=== PATIENT | female | born 1955 | race Caucasian/White ===

== ENCOUNTER → 2017-05-11 14:12 | Outpatient (POV) | payer OTHER, SELFPAY | PROVIDERS: PCP Internal Medicine | DX: Z00.00 Encounter for general adult medical examination without abnormal findings (principal) ==

== ENCOUNTER → 2017-05-24 11:50 | Outpatient (POV) | payer OTHER, SELFPAY | PROVIDERS: PCP Internal Medicine; Visit Provider Internal Medicine | DX: Z00.00 Encounter for general adult medical examination without abnormal findings (principal) ==

== ENCOUNTER → 2017-07-28 15:45 | Outpatient (POV) | payer OTHER, SELFPAY | PROVIDERS: PCP Internal Medicine; Visit Provider Dermatology | DX: Z00.00 Encounter for general adult medical examination without abnormal findings (principal) ==

== ENCOUNTER → 2017-11-22 14:38 | Outpatient (POV) | payer OTHER, SELFPAY | PROVIDERS: PCP Internal Medicine; Visit Provider Internal Medicine | DX: Z00.00 Encounter for general adult medical examination without abnormal findings (principal) ==

== ENCOUNTER → 2017-12-16 14:58 | Outpatient (CLI) | payer OTHER, SELFPAY ==
--- NOTE | 2017-12-16 | XR_ITS ---
XR chest 2V HISTORY: Cough ORDERING PHYSICIAN: Bird Stanton PATIENT AGE: 62 years COMPARISON: PA and lateral chest 11/25/2016 FINDINGS: The cardiomediastinal silhouette and pulmonary vascularity are within normal limits. The lungs are clear without infiltrates, suspicious nodules, or pleural effusions. There is minimal atelectasis versus scarring in the right perihilar region and right middle lobe. No acute bony abnormalities. IMPRESSION: Negative chest, no acute finding
== END ==
PROVIDERS: PCP Internal Medicine; Visit Provider Internal Medicine
DX: R50.9 Fever, unspecified (principal); R05 Cough; R06.02 Shortness of breath; R09.3 Abnormal sputum
CPT/HCPCS: 71046

== ENCOUNTER → 2017-12-19 08:43 | Outpatient (CLI) | payer OTHER, SELFPAY ==
--- NOTE | 2017-12-19 08:48 | MM_ITS ---
MM Dig screening mamm BI w/CAD ORDERING PHYSICIAN : Bird Stanton PATIENT AGE: 62 years GENDER: Female COMPARISON: November 2014, 2016, 2013, December 2011 INDICATION: ITS.REASON: SCREENING no hormones. No new complaints. Previous 6 benign excisional biopsy right and left breast. Noncontributory family history TECHNIQUE: Standard CC and MLO images were obtained. R2 CAD reviewed. FINDINGS: Moderate breast density. Stable mild to moderate Asymmetry . Prior films are very helpful and supportive stable asymmetry. Stable breast pattern is bilaterally since studies dating back to at least 2011. No new dominant mass nor suspicious cavitations either breast IMPRESSION: Stable bilateral mammogram. No significant new findings. BI-RADS Category: 2 Benign Finding(s) RECOMMENDED FOLLOW-UP: 1YR 1 YEAR FOLLOW-UP (A letter has been sent to the patient regarding results of the study.)
== END ==
PROVIDERS: PCP Internal Medicine; Visit Provider Internal Medicine
DX: Z12.31 Encounter for screening mammogram for malignant neoplasm of breast (principal)
CPT/HCPCS: 77067

== ENCOUNTER → 2018-08-01 15:14 | Outpatient (POV) | payer OTHER, SELFPAY | PROVIDERS: Visit Provider Dermatology | DX: Z00.00 Encounter for general adult medical examination without abnormal findings (principal) ==

== ENCOUNTER → 2018-08-09 15:08 | Outpatient (POV) | payer OTHER, SELFPAY | DX: Z00.00 Encounter for general adult medical examination without abnormal findings (principal) ==

== ENCOUNTER → 2019-01-02 12:50 | Outpatient (CLI) | payer OTHER, SELFPAY ==
--- NOTE | 2019-01-02 12:55 | MM_ITS ---
PROCEDURE: MM DIG SCREENING MAMM BI W/CAD CLINICAL INDICATION: SCREENING There is no personal or family history of breast cancer. There has been previous biopsies on each breast for benign disease. COMPARISON: [facility]B DIG MAMM-SCREEN KAMRYN from 12/19/2014 DMSB DIG MAMM-SCREEN KAMRYN W/CAD from 11/25/2016 [facility] MM Dig screening mamm BI w/CAD from 12/19/2017 TECHNIQUE: Standard CC and MLO images were obtained. R2 CAD reviewed. FINDINGS: Moderate diffuse fibroglandular densities are seen throughout both breasts. There is moderate arterial calcification in each breast. There is no new or suspicious lesion in either breast and no suspicious microcalcifications. There are fatty replaced nodes in both axilla. IMPRESSION: Fibrofatty parenchyma with no suspicious lesions seen BI-RAD Category: 2 Benign Finding(s) FOLLOW-UP: 1YR 1 Year Follow-up (A letter has been sent to the patient regarding results of the study.) Dictated by: Dr. Nicholas Valerio MD 01/04/2019 14:[address] Nicholas Valerio MD in [place] 01/04/2019 14:45
== END ==
PROVIDERS: PCP Internal Medicine; Visit Provider Internal Medicine
DX: Z12.31 Encounter for screening mammogram for malignant neoplasm of breast (principal)
CPT/HCPCS: 77067

== ENCOUNTER → 2019-07-27 15:50 | Outpatient (CLI) | payer OTHER, SELFPAY ==
[2019-07-27 17:11] LABS: Coronavirus 19 IgG Antibody Negative (Negative); Coronavirus 19 IgM Antibody Negative (Negative)
== END ==
PROVIDERS: Visit Provider Internal Medicine
DX: Z03.818 Encounter for observation for suspected exposure to other biological agents ruled out (principal)
CPT/HCPCS: 36415; 86328

== ENCOUNTER → 2019-08-01 13:49 | Outpatient (POV) | payer OTHER, SELFPAY | PROVIDERS: PCP Internal Medicine | DX: Z00.00 Encounter for general adult medical examination without abnormal findings (principal) ==

== ENCOUNTER → 2019-08-07 14:44 | Outpatient (POV) | payer OTHER, SELFPAY | PROVIDERS: PCP Internal Medicine; Visit Provider Physician Assistant | DX: Z00.00 Encounter for general adult medical examination without abnormal findings (principal) ==

== ENCOUNTER → 2019-11-05 14:37 | Outpatient (CLI) | payer OTHER, SELFPAY ==
[2019-11-05 16:08] LABS: Potassium 5.5 mmoL/L (3.5-5.1)
== END ==
PROVIDERS: Visit Provider Internal Medicine
DX: E83.52 Hypercalcemia (principal)
CPT/HCPCS: 36415; 84132

== ENCOUNTER → 2020-01-08 10:44 | Outpatient (CLI) | payer OTHER, SELFPAY ==
--- NOTE | 2020-01-08 10:48 | MM_ITS ---
PROCEDURE: MM DIG SCREENING MAMM BI W/CAD Digital Breast Tomosynthesis Included CLINICAL INDICATION: SCREENING There is no personal or family history of breast cancer. There have been previous biopsies on each breast for benign disease. COMPARISON: MG DMSB DIG MAMM-SCREEN KAMRYN from 12/19/2014 MG DMSB DIG MAMM-SCREEN KAMRYN W/CAD from 11/25/2016 MG [facility] MM Dig screening mamm BI w/CAD from 12/19/2017 MG MM DIG SCREENING MAMM BI W/CAD from 01/02/2019 TECHNIQUE: Standard CC and MLO images and 3D Tomosynthesis was obtained. R2 CAD reviewed. FINDINGS: Moderate scattered somewhat heterogenic fibroglandular densities are seen throughout both breasts. There is mild arterial calcification in each breast. There are fatty replaced nodes in both axilla which are stable. There is no suspicious lesion and no suspicious microcalcifications. IMPRESSION: Moderate breast density with no suspicious lesions seen BI-RAD Category: 2 Benign Finding(s) FOLLOW-UP: 1YR 1 Year Follow-up (A letter has been sent to the patient regarding results of the study.) Dictated by: Dr. Nicholas Valerio MD 01/11/2020 11:34 Dr. Nicholas Valerio MD in [place] 01/11/2020 11:34
== END ==
PROVIDERS: PCP Internal Medicine; Visit Provider Internal Medicine
DX: Z12.31 Encounter for screening mammogram for malignant neoplasm of breast (principal)
CPT/HCPCS: 77063; 77067

== ENCOUNTER → 2020-10-15 15:08 | Outpatient (POV) | payer OTHER, SELFPAY | DX: Z00.00 Encounter for general adult medical examination without abnormal findings (principal) ==

== ENCOUNTER → 2021-01-12 16:40 | Outpatient (CLI) | payer OTHER, SELFPAY ==
[2021-01-12 16:51] LABS: Coronavirus 19, PCR Not Detected (NotDetected); Influenza A, PCR Not Detected (NotDetected); Influenza B, PCR Not Detected (NotDetected)
== END ==
PROVIDERS: PCP Internal Medicine; Visit Provider Nurse Practitioner
DX: Z20.822 Contact with and (suspected) exposure to COVID-19 (principal)
CPT/HCPCS: C9803; U0003; U0005

== ENCOUNTER → 2021-02-19 15:49 | Outpatient (CLI) | payer OTHER, SELFPAY ==
--- NOTE | 2021-02-19 15:51 | MM_ITS ---
PROCEDURE INFORMATION: Exam: MG Bilateral Screening 3D Mammography Exam date and time: 02/19/2021 3:51 PM Age: 65 years old Clinical indication: Encounter for screening mammogram for malignant neoplasm of breast TECHNIQUE: Imaging protocol: Bilateral screening tomosynthesis and 2D mammography including computer-aided detection (CAD) when performed. COMPARISON: 1. MG MM DIG SCREENING MAMM BI W/CAD 01/08/2020 10:59 AM 2. MG MM DIG SCREENING MAMM BI W/CAD 01/02/2019 1:13 PM FINDINGS: MAMMOGRAPHY: Breast composition: The breast tissue is composed of scattered areas of fibroglandular density. Mass: Questionable 0.9 cm mass in the middle third of the left upper outer quadrant Architectural distortion: None. Calcifications: No suspicious calcifications. Asymmetric density: None. Skin thickening: None. Axillary adenopathy: None. IMPRESSION: Patient to be recalled for spot compression views of the left breast in the CC and MLO projections, a full 90 degree lateral view, and left breast ultrasound for further evaluation of a left breast mass. ASSESSMENT: BI-RADS Category 0: Incomplete- Need Additional Imaging Evaluation and/or Prior Mammograms for Comparison
== END ==
PROVIDERS: PCP Internal Medicine; Visit Provider Internal Medicine
DX: Z12.31 Encounter for screening mammogram for malignant neoplasm of breast (principal)
CPT/HCPCS: 77063; 77067

== ENCOUNTER → 2021-03-10 14:39 | Outpatient (CLI) | payer OTHER, SELFPAY ==
--- NOTE | 2021-03-10 14:47 | MM_ITS ---
PROCEDURE INFORMATION: Exam: US Left Breast, Complete MG Left Diagnostic Breast Tomosynthesis Exam date and time: 03/10/2021 2:47 PM Age: 65 years old Clinical indication: Patient recalled for further evaluation of a questionable left breast mass TECHNIQUE: Imaging protocol: Complete ultrasound of all four quadrants of the Left breast and the retroareolar regions, including ultrasound of the axilla when performed. Left Diagnostic tomosynthesis and 2D mammography including computer-aided detection (CAD) when performed. Unilateral or bilateral exam. COMPARISON: 1. MG MM DIG SCREENING MAMM BI W/CAD 02/19/2021 3:48 PM 2. MG MM DIG SCREENING MAMM BI W/CAD 01/08/2020 10:59 AM FINDINGS: MAMMOGRAPHY: Digital diagnostic spot compression views of the left breast and 90 degree lateral view of the left breast demonstrate normal overlapping fibroglandular structures without persistent mass or asymmetry identified. ULTRASOUND: Sonographic images of the left breast including the retroareolar region, all 4 quadrants and the axilla do not demonstrate any solid or cystic masses. No architectural distortion or acoustical shadowing. No skin thickening or axillary adenopathy. IMPRESSION: No mammographic or sonographic evidence of malignancy. Annual bilateral mammographic screening is recommended unless otherwise clinically indicated. ASSESSMENT: Assessment: BI-RADS Category 1: Negative
== END ==
PROVIDERS: PCP Internal Medicine; Visit Provider Internal Medicine
DX: N63.21 Unspecified lump in the left breast, upper outer quadrant (principal)
CPT/HCPCS: 76641; 77061; 77065; G0279

== ENCOUNTER → 2021-03-23 16:21 | Outpatient (CLI) | payer OTHER, SELFPAY | PROVIDERS: Visit Provider Nurse Practitioner | DX: Z20.822 Contact with and (suspected) exposure to COVID-19 (principal) | CPT/HCPCS: C9803; U0003; U0005 ==

== ENCOUNTER 2021-05-24 18:29 | Emergency (ER) | payer OTHER, SELFPAY ==
[2021-05-24 18:30] VITALS: BP 187/91; PULSE 104; RESP 26; TEMP 36.7; O2SAT 93; BMI 29.0
--- NOTE | 2021-05-24 18:49 | HMH.EDUTC ---
[facility] [place] Disposition Clinical Impression: Acute asthma exacerbation Qualifiers: Asthma severity: moderate Asthma persistence: unspecified Qualified Code(s): J45.901 - Unspecified asthma with (acute) exacerbation Disposition: Home, Self-Care Condition on Discharge: Good Instructions: DI for Asthma -- Adult Additional Instructions: Start antibiotic today. Be sure to complete entire prescription even if feeling better Tylenol and ibuprofen as needed for pain or fever Humidifier/vaporizer/hot steamy shower Follow-up with primary care tomorrow. Follow-up immediately in the ER of the [facility] for new or worsening symptoms or no noticeable improvement over the next 48-72 hours. Stop smoking Inhaler every 4-6 hours as needed. Should help open airways improved cough, wheezing, shortness of breath Start steroids tomorrow. Helps with inflammation therefore coughing and wheezing. Follow directions on package. Prescriptions: predniSONE [Prednisone 20mg Tab] 20 mg PO BID #10 tab Prescription Printed Azithromycin [Zithromax 250mg tab] 250 mg PO DIRECTED #6 tab Prescription Printed Referrals: Bird Stanton [Primary Care Provider] - Time of Disposition: 19:23 Medical Decision Making - Martin Inquiry Pt receiving controlled substance: No Vital Signs: 05/24/21 18:30 Temperature 98.1 F Temperature Source Oral Pulse Rate [Right Brachial] 104 H Respiratory Rate 26 H Blood Pressure [Right Arm] 187/91 H Blood Pressure Mean [Right Arm] 123 Blood Pressure Source [Right Arm] Automatic Cuff Blood Pressure Position [Right Arm] Sitting 02 Sat by Pulse Oximetry 93 L Oxygen Delivery Method Room Air [facility] [place] HPI - General Chief complaint: Urgent Treatment Center Stated complaint: diff breathing Time Seen by Provider: 05/24/21 19:18 Mode of Arrival: Ambulatory Source of Information: Patient Limitations: No Limitations Description of Symptoms (Recalled from Triage Doc. by RN): PATIENT C/O SOA AND COUGH. SHE REPORTS SYMPTOMS STARTED 15 DAYS AGO, BUT HAVE GOTTEN WORSE OVER THE PAST FEW DAYS HEENT Symptoms (Recalled from RN notes): No Resp Symptoms (Recalled from RN notes): Yes Skin Symptoms (Recalled from RN notes): No MS Symptoms (Recalled from RN notes): No Functional Status (Recalled from RN notes): WNL - History of Present Illness Provider Complaint: 65 yr old female presents for soa and wheezing. pt states she has had symptoms for 14 days but they have worsened over the last couple. pt states hx of asthma and she tried to mange it at home but nothing was helping - Related Data Home Medications Medication Instructions Recorded Confirmed nuyspdeicu-cdzlbbplyyiej-znuiehrr 1 cap PO Q8H PRN 02/12/20 02/28/20 50 mg-300 mg-40 mg capsule cetirizine 10 mg capsule mg PO 02/12/20 02/28/20 diltiazem HCl 180 mg 180 mg PO DAILY 02/12/20 02/28/20 capsule,extended release 24 hr hydrochlorothiazide 12.5 mg tablet 12.5 mg PO DAILY 02/12/20 02/28/20 montelukast 10 mg tablet 10 mg PO DAILY 02/12/20 02/28/20 olmesartan 20 mg tablet 20 mg PO DAILY 02/12/20 02/28/20 omega-3-dha 120 mg-epa 180 mg-fish cap PO 02/12/20 02/28/20 oil-vitamin D3 1,000 unit capsule vitamin D3 20 mcg-vit K2 180 tab PO 02/12/20 02/28/20 mcg-calcium fructoborate 216 mg tablet Previous Rx's Medication Instructions Recorded Azithromycin [Zithromax 250mg 250 mg PO DIRECTED #6 tab 05/24/21 tab] predniSONE [Prednisone 20mg 20 mg PO BID #10 tab 05/24/21 Tab] Allergies Allergy/AdvReac Type Severity Reaction Status Date / Time codeine [CODEINE] Allergy Unknown NAUSEA/VOMI Verified 02/28/20 16:07 TTING diphenhydramine Allergy Unknown I-HIVES Verified 02/28/20 16:07 [From BENADRYL] morphine [MORPHINE] Allergy Unknown NA-NAUSEA/V Verified 02/28/20 16:07 OMITING nebivolol [From BYSTOLIC] Allergy Unknown ASTHMA Verified 02/28/20 16:07 Penicillins [PENICILLINS] Allergy Unknown REACTION Verified 02/28/20 16:07 A
[2021-05-24 19:18] VITALS: BP 145/62; PULSE 89; RESP 26; TEMP 36.7; O2SAT 94
--- NOTE | 2021-05-25 09:25 | PC.NURSE ---
Spoke with MEHDI TORRES in clinic and called in rx from 05/24/2021. They stated they never received the RX.
== END 2021-05-24 19:30 | disposition home or self-care (01) ==
PROVIDERS: Emergency Provider Nurse Practitioner Family; PCP Internal Medicine
DX: J45.901 Unspecified asthma with (acute) exacerbation (principal); Z79.52 Long term (current) use of systemic steroids; Z88.0 Allergy status to penicillin; Z88.2 Allergy status to sulfonamides; Z88.5 Allergy status to narcotic agent; Z88.8 Allergy status to other drugs, medicaments and biological substances
CPT/HCPCS: 96372; 99213; G0463

== ENCOUNTER → 2021-06-02 08:15 | Outpatient (CLI) | payer OTHER, SELFPAY ==
--- NOTE | 2021-06-02 08:38 | XR_ITS ---
FINAL REPORT TECHNIQUE: Chest PA & Lateral CLINICAL HISTORY: SEVERE ASTHMA, COPD, OSTEOPENIA FINDINGS: 2 views of the chest were performed. The heart is mildly enlarged. There is a small to moderate hiatal hernia. The lungs are hyperinflated. There are linear opacities in the right middle lobe consistent with atelectasis or scarring. There are no pleural effusions. There is no pneumothorax. The bony thorax appears intact. IMPRESSION: Right middle lobe atelectasis or scarring. Reviewed, Interpreted and Dictated by Jared Chaidez MD Transcribed by Nakul Fuentes Authenticated by Jared Chaidez MD on 06/02/2021 11:38:47 AM [facility]
[2021-06-02 09:10] LABS: Basophils # 0.4 K/mm3 (0-0.2); Basophils % 2.8 % (0.1-2.0); Eosinophils # 0.3 K/mm3 (0.0-0.4); Eosinophils % 1.6 % (0.1-12.0); Hematocrit 39.8 % (37.0-47.0); Hemoglobin 13.1 g/dL (12.2-16.2); Lymphocytes # 5.2 K/mm3 (0.7-4.5); Lymphocytes % 32.8 % (10-50); Mean Corpuscular HGB Conc 32.8 g/dL (31.8-35.4); Mean Corpuscular Hemoglobin 28.8 pg (27.0-31.2); Mean Corpuscular Volume 87.9 fl (81-99); Mean Platelet Volume 7.7 fl (7.4-10.4); Monocytes # 0.8 K/mm3 (0.1-1.0); Monocytes % 5.1 % (1.7-9.3); Neutrophils # 9.1 K/mm3 (1.8-7.8); Neutrophils % 57.8 % (37.0-80.0); Platelet Count 419 K/mm3 (142-424); Red Blood Count 4.53 M/mm3 (4.20-5.40); Red Cell Distribution Width 14.4 % (11.5-17.5); White Blood Count 15.7 K/mm3 (4.8-10.8)
[2021-06-02 09:18] LABS: Chloride 98 mmol/L (98-107); MANUAL DIFFERENTIAL MANUAL DIFFERENTIAL (MANUAL DIFF); Potassium 3.4 mmoL/L (3.5-5.1); Sodium 133 mmol/L (136-145)
[2021-06-02 09:20] LABS: Alanine Aminotransferase 19 U/L (12-78); Anion Gap 9.4 mEq/L (5-15); Aspartate Amino Transferase 21 U/L (14-36); Blood Urea Nitrogen 19 mg/dl (7-17); Carbon Dioxide 29 mmol/L (22.0-30.0); Estimated Glomerular Filt Rate 50 ml/min (>60); GFR (African American) 60 ML/MIN (>60)
[2021-06-02 09:21] LABS: Albumin Level 3.9 g/dl (3.5-5.0); Albumin/Globulin Ratio 1.9 (1.1-1.8); Alkaline Phosphatase 66 U/L (38-126); Bilirubin,Total 0.7 mg/dl (0.2-1.3); Calcium 9.2 mg/dl (8.4-10.2); Chol/HDL Ratio 3.9 (1-3.5); Cholesterol 200 mg/dl (140-200); Globulin 2.1 g/dL (1.3-3.2); Glucose 75 mg/dl (74-100); HDL Cholesterol 51 mg/dl (40-60); Triglycerides 134 mg/dl (30-150); VLDL Cholesterol 27 mg/dL (0-40)
[2021-06-02 09:32] LABS: Direct LDL Cholesterol 121.61 mg/dL (100-129)
[2021-06-02 14:57] LABS: Eosinophils % 1 % (0-3); Lymphocytes % 42 % (10-50); Monocytes % 5 % (2-9); Neutrophils % 52 % (42-76); Platelet Estimate Normal; RBC Morphology Normal; Total Cells Counted 100
== END ==
PROVIDERS: PCP Internal Medicine; Visit Provider Internal Medicine
DX: J45.50 Severe persistent asthma, uncomplicated (principal); J44.9 Chronic obstructive pulmonary disease, unspecified; I10 Essential (primary) hypertension; E78.5 Hyperlipidemia, unspecified; M85.89 Other specified disorders of bone density and structure, multiple sites
CPT/HCPCS: 36415; 71046; 80053; 80061; 82306; 85007; 85025

== ENCOUNTER → 2021-08-04 16:13 | Outpatient (POV) | payer OTHER, SELFPAY | PROVIDERS: Visit Provider Dermatology | DX: Z00.00 Encounter for general adult medical examination without abnormal findings (principal) ==

== ENCOUNTER → 2021-09-04 09:06 | Outpatient (CLI) | payer OTHER, SELFPAY ==
--- NOTE | 2021-09-04 09:09 | XR_ITS ---
FINAL REPORT TECHNIQUE: Bone densitometry calculations of the lumbar spine and both hips were obtained. CLINICAL HISTORY: . post menopausal screening FINDINGS: DEXA BONE DENSITY AXIAL SKELETON Using L1-4, the bone mineral density of the spine is 0.963 g/cm2, corresponding to T-score of -0.8. Note that these values may be falsely elevated secondary to hypertrophic change. Using the left hip, the bone mineral density of the femoral neck is 0.593 g/cm2, corresponding to a T-score of -2.3. Using the right hip, the bone mineral density of the femoral neck is 0.621 g/cm2, corresponding to a T-score of -2.1. NOTE: T-score: Standard deviation compared with peak bone mass of young adult mean. *Following the recommendations of the International Society of Bone densitometry, classification of hip BMD is based on the lower of two T-scores; total hip or femoral neck. IMPRESSION: Diminished bone mineral density of the hips bilaterally consistent with osteopenia. FRAX 10 year fracture risk is 19 % for major osteoporotic fracture based on calculations for the left hip. Reviewed, Interpreted and Dictated by Jared Chaidez MD Transcribed by Lisa Mahajan Authenticated and [facility] [place]
== END ==
PROVIDERS: PCP Internal Medicine; Visit Provider Nurse Practitioner Obstetrics & Gynecology
DX: Z78.0 Asymptomatic menopausal state (principal); M85.89 Other specified disorders of bone density and structure, multiple sites
CPT/HCPCS: 77080

== ENCOUNTER → 2021-09-04 09:56 | Outpatient (CLI) | payer OTHER, SELFPAY ==
[2021-09-04 11:03] LABS: Anion Gap 11.9 mEq/L (5-15); Blood Urea Nitrogen 17 mg/dl (7-17); Calcium 10.4 mg/dl (8.4-10.2); Carbon Dioxide 27 mmol/L (22.0-30.0); Chloride 100 mmol/L (98-107); Estimated Glomerular Filt Rate 62 ml/min (>60); GFR (African American) 75 ML/MIN (>60); Glucose 102 mg/dl (74-100); Potassium 3.9 mmoL/L (3.5-5.1); Sodium 135 mmol/L (136-145)
[2021-09-08 15:09] LABS: D001-IgE D pteronyssinus <0.10 kU/L (Class 0); D002-IgE D farinae <0.10 kU/L (Class 0); E001-IgE Cat Dander <0.10 kU/L (Class 0); E005-IgE Dog Dander <0.10 kU/L (Class 0); E072-IgE Mouse Urine <0.10 kU/L (Class 0); G002-IgE Bermuda Grass <0.10 kU/L (Class 0); G006-IgE Timothy Grass <0.10 kU/L (Class 0); I006-IgE Cockroach, German <0.10 kU/L (Class 0); Immunoglobulin E, Total 10 IU/mL (6-495); M001-IgE Penicillium chrysogen <0.10 kU/L (Class 0); M002-IgE Cladosporium herbarum <0.10 kU/L (Class 0); M003-IgE Aspergillus fumigatus <0.10 kU/L (Class 0); M006-IgE Alternaria alternata <0.10 kU/L (Class 0); T001-IgE Maple/Box Elder <0.10 kU/L (Class 0); T003-IgE Common Silver Birch <0.10 kU/L (Class 0); T006-IgE Cedar, Mountain <0.10 kU/L (Class 0); T007-IgE Oak, White <0.10 kU/L (Class 0); T008-IgE Elm, American <0.10 kU/L (Class 0); T010-IgE Walnut <0.10 kU/L (Class 0); T011-IgE Maple Leaf Sycamore <0.10 kU/L (Class 0); T014-IgE Cottonwood <0.10 kU/L (Class 0); T015-IgE Ash, White <0.10 kU/L (Class 0); T022-IgE Pecan, Hickory <0.10 kU/L (Class 0); T070-IgE White Mulberry <0.10 kU/L (Class 0); W001-IgE Ragweed, Short <0.10 kU/L (Class 0); W011-IgE Thistle, Russian <0.10 kU/L (Class 0); W014-IgE Pigweed, Common <0.10 kU/L (Class 0); W018-IgE Sheep Sorrel <0.10 kU/L (Class 0)
== END ==
PROVIDERS: PCP Internal Medicine; Visit Provider Internal Medicine Pulmonary Disease
DX: R06.09 Other forms of dyspnea (principal); J45.40 Moderate persistent asthma, uncomplicated; I10 Essential (primary) hypertension; E87.6 Hypokalemia
CPT/HCPCS: 36415; 80048; 82785; 86003

== ENCOUNTER → 2021-09-28 09:45 | Outpatient (CLI) | payer OTHER, SELFPAY ==
[2021-09-28 11:10] VITALS: PULSE 89; PULSE 96
== END ==
PROVIDERS: PCP Internal Medicine; Visit Provider Internal Medicine Pulmonary Disease
DX: R06.09 Other forms of dyspnea (principal); J45.40 Moderate persistent asthma, uncomplicated
CPT/HCPCS: 94060; 94640; 94727; 94729

== ENCOUNTER → 2022-06-17 10:52 | Outpatient (CLI) | payer OTHER, SELFPAY ==
--- NOTE | 2022-06-17 11:03 | MM_ITS ---
PROCEDURE INFORMATION: Exam: MG Bilateral Screening 3D Mammography Exam date and time: 06/17/2022 10:51 AM Age: 66 years old Clinical indication: Screening mammogram TECHNIQUE: Imaging protocol: Bilateral Screening tomosynthesis and 2D mammography including computer-aided detection (CAD) when performed. COMPARISON: 1. MG MM DIG MAMM DX UNILAT LT CAD 03/10/2021 2:46 PM 2. MG MM DIG SCREENING MAMM BI W/CAD 02/19/2021 3:48 PM 3. MG MM DIG SCREENING MAMM BI W/CAD 01/08/2020 10:59 AM 4. MG MM DIG SCREENING MAMM BI W/CAD 01/02/2019 1:13 PM FINDINGS: MAMMOGRAPHY: Breast composition: There are scattered areas of fibroglandular density. Mass: None. Architectural distortion: No new or suspicious architectural distortion. Calcifications: Stable benign-appearing calcifications are present. No new or suspicious cluster of microcalcifications have developed. Asymmetric density: No new or suspicious asymmetric density is present Skin thickening: None. Axillary adenopathy: None. IMPRESSION: No mammographic evidence of malignancy. Recommend annual screening mammography unless otherwise clinically indicated. ASSESSMENT: BI-RADS category 2: Benign
== END ==
PROVIDERS: PCP Internal Medicine; Visit Provider Internal Medicine
DX: Z12.31 Encounter for screening mammogram for malignant neoplasm of breast (principal)
CPT/HCPCS: 77063; 77067

== ENCOUNTER 2022-09-22 17:28 | Emergency (ER) | payer OTHER, SELFPAY ==
[2022-09-22 17:43] VITALS: BP 191/90; PULSE 105; RESP 22; TEMP 36.7; O2SAT 95; BMI 27.9
--- NOTE | 2022-09-22 17:47 | XR_ITS ---
PROCEDURE INFORMATION: Exam: XR Chest Exam date and time: 09/22/2022 5:43 PM Age: 67 years old Clinical indication: Cough; Additional info: Cough, congestion TECHNIQUE: Imaging protocol: Radiologic exam of the chest. Views: 2 views. COMPARISON: CR XR CHEST 2V 06/02/2021 8:43 AM FINDINGS: Lungs: Stable atelectasis and/or scarring within the right middle lobe and right upper lobe calcified granuloma. No new focal airspace consolidation. Pleural spaces: Unremarkable. No pleural effusion. No pneumothorax. Heart/Mediastinum: Unchanged cardiomediastinal contours. Bones/joints: Unchanged compression deformity of the L3 vertebral body. IMPRESSION: No acute pulmonary findings.
--- NOTE | 2022-09-22 17:52 | EXP.UTC ---
Discharge Plan Disposition Patient Disposition: Home, Self-Care Condition: Good Prescriptions Prescriptions: New promethazine-DM 6.25-15 mg/5 mL Syrup 5 ml PO Q6H PRN (Reason: Cough) Qty: 240 0RF levofloxacin [levofloxacin] 500 mg tablet 500 mg PO DAILY Qty: 7 0RF methylprednisolone 4 mg Tablets,Dose Pack 4 mg PO DIRECTED Qty: 21 0RF No Action azelastine 137 mcg (0.1 %) aerosol,spray 2 spray INTRANASAL HS 90 Days Qty: 30 3RF Rx Instructions: administer into each nostril fluticasone propion-salmeterol [Advair Diskus] 250-50 mcg/dose blister with device 1 inh INHALATION BID 90 Days Qty: 180 3RF albuterol sulfate 90 mcg/actuation HFA aerosol inhaler 2 inh IH Q6H PRN (Reason: shortness of breath or wheezing) 90 Days Qty: 8.5 3RF montelukast 10 mg tablet 10 mg PO DAILY 90 Days Qty: 90 3RF doxycycline hyclate 100 mg capsule 100 mg PO BID 7 Days Qty: 14 0RF Zyrtec 10 mg capsule PO diltiazem HCl 180 mg capsule,extended release 24hr 180 mg PO DAILY hydrochlorothiazide 12.5 mg tablet 12.5 mg PO DAILY olmesartan 20 mg tablet 20 mg PO DAILY montelukast 10 mg tablet 10 mg PO DAILY vit D3-vit K2-ca fructoborate 20 mcg-180 mcg- 216 mg tablet PO ix-4-fpw-epa-fish oil-vit D3 120 mg-180 mg -1,000 unit capsule PO srpibksssy-cvzwtdudglxtf-ilhm [Fioricet] 50-300-40 mg capsule 1 cap PO Q8H PRN omeprazole 40 mg capsule,delayed release(DR/EC) 40 mg PO DAILY Prolia 60 mg/mL syringe 60 mg SQ [id number] Qty: 1 2RF fluticasone propionate [Flonase Allergy Relief] 50 mcg/actuation spray,suspension 2 spray intranasal DAILY 90 Days Qty: 16 3RF Rx Instructions: administer into each nostril Referrals Follow up/Referrals: Bird Stanton MD [Primary Care Provider] - See instructions Activity Restrictions/Add. Instructions Additional Instructions/Restrictions: Drink plenty of fluids. Take tylenol for pain or fever. Take the medications as directed. Follow up with your regular doctor. GO TO THE ER FOR ANY WORSENING SYMPTOMS Don't start the oral steroids until tomorrow, since you had the shot here today. The cough medication (promethazine dm) will make you drowsy, so don't drive or operate heavy machinery after taking it. Clinical Impressions Clinical Impression: Pneumonia Instructions Patient Instructions: Pneumonia-Adult, Promethazine, Ceftriaxone Injection, Levofloxacin Discharge ED Provider: Vish Babb [facility] HPI General Stated complaint: SOA Mode of Arrival: Ambulatory Source of Information: Patient Limitations: No Limitations Time Seen by Provider: 09/22/22 17:52 Description of Symptoms (Recalled from Triage Doc. by RN): pt. states she has has shortness of air, cough, and congestion for about 2 weeks. She does state she has a history of asthma and has been using her albuterol inhaler as needed. HEENT Symptoms (Recalled from RN notes): No Resp Symptoms (Recalled from RN notes): Yes Skin Symptoms (Recalled from RN notes): No MS Symptoms (Recalled from RN notes): No Functional Status (Recalled from RN notes): no History of Present Illness Provider Complaint: She states that for the past 2 weeks she has had sinus congestion and chest congestion. She has a history of asthma. Related Data Home Medications Medication Instructions Recorded Confirmed hvqprtkyox-fpxenuxnqaxgv-cwpayvka 1 cap PO Q8H PRN 02/12/20 04/19/22 50 mg-300 mg-40 mg capsule (Fioricet) cetirizine 10 mg capsule (Zyrtec) mg PO 02/12/20 04/19/22 diltiazem HCl 180 mg 180 mg PO DAILY 02/12/20 04/19/22 capsule,extended release 24 hr hydrochlorothiazide 12.5 mg tablet 12.5 mg PO DAILY 02/12/20 04/19/22 montelukast 10 mg tablet 10 mg PO DAILY 02/12/20 04/19/22 olmesartan 20 mg tablet 20 mg PO DAILY 02/12/20 04/19/22 omega-3-dha 120 mg-epa 180 mg-fish cap PO 02/12/20 04/19/22 oil-vitamin D3 1,000 un
[2022-09-22 18:24] VITALS: BP 191/90; PULSE 105; RESP 20; TEMP 36.7; O2SAT 94
== END 2022-09-22 18:35 | disposition home or self-care (01) ==
PROVIDERS: Emergency Provider Nurse Practitioner Family; PCP Internal Medicine
DX: J18.9 Pneumonia, unspecified organism (principal); R06.02 Shortness of breath; J45.909 Unspecified asthma, uncomplicated; Z87.891 Personal history of nicotine dependence
CPT/HCPCS: 71046; 96372; 99212; 99214; G0463; J0696

== ENCOUNTER 2023-02-05 09:08 | Emergency (ER) | payer OTHER, SELFPAY ==
--- NOTE | 2023-02-05 09:45 | EXP.UTC ---
Discharge Plan Disposition Patient Disposition: Home, Self-Care Condition: Good Prescriptions Prescriptions: New azithromycin [Zithromax] 250 mg tablet 250 mg PO UD DOSE PK Qty: 6 0RF Rx Instructions: Take two (2) tablets today, then one (1) tablet days #2 thru #5 prednisone [prednisone] 20 mg tablet 20 mg PO BID 5 Days Qty: 10 0RF benzonatate [benzonatate] 100 mg capsule 100 mg PO TIDP PRN (Reason: Cough) Qty: 30 0RF albuterol sulfate [Ventolin HFA] 90 mcg/actuation HFA aerosol inhaler 2 puff inhalation Q6H PRN (Reason: shortness of breath or wheezing) Qty: 6.7 0RF No Action albuterol sulfate 90 mcg/actuation HFA aerosol inhaler 2 inh IH Q6H PRN (Reason: shortness of breath or wheezing) 90 Days Qty: 8.5 3RF Zyrtec 10 mg capsule PO diltiazem HCl 180 mg capsule,extended release 24hr 180 mg PO DAILY hydrochlorothiazide 12.5 mg tablet 12.5 mg PO DAILY olmesartan 20 mg tablet 20 mg PO DAILY vit D3-vit K2-ca fructoborate 20 mcg-180 mcg- 216 mg tablet PO jj-7-tip-epa-fish oil-vit D3 120 mg-180 mg -1,000 unit capsule PO meszxbqljx-cnofwpogxkbsl-ifrw [Fioricet] 50-300-40 mg capsule 1 cap PO Q8H PRN omeprazole 40 mg capsule,delayed release(DR/EC) 40 mg PO DAILY fluticasone propionate [Flonase Allergy Relief] 50 mcg/actuation spray,suspension 2 spray intranasal DAILY 90 Days Qty: 16 2RF Rx Instructions: administer into each nostril azelastine 137 mcg (0.1 %) aerosol,spray 2 spray INTRANASAL HS 90 Days Qty: 30 2RF Rx Instructions: administer into each nostril montelukast 10 mg tablet 10 mg PO DAILY 90 Days Qty: 90 2RF Prolia 60 mg/mL syringe See Rx Instructions .ROUTE .COMPLEX Qty: 1 0RF Dose Instruction: INJECT THE contents of 1 syringe (60mg/ml) SUBCUTANEOUSLY every 6 MONTHS DIRECTED Rx Instructions: INJECT THE contents of 1 syringe (60mg/ml) SUBCUTANEOUSLY every 6 MONTHS DIRECTED fluticasone furoate-vilanterol [Breo Ellipta] 100-25 mcg/dose blister with device 1 inh inhalation DAILY Qty: 90 2RF Referrals Follow up/Referrals: Bird Stanton MD [Primary Care Provider] - See instructions Activity Restrictions/Add. Instructions Additional Instructions/Restrictions: Drink plenty of fluids. Take tylenol or ibuprofen for pain or fever. Take the medications as directed. Follow up with your regular doctor. GO TO THE ER FOR ANY WORSENING SYMPTOMS Clinical Impressions Clinical Impression: Asthma exacerbation Instructions Patient Instructions: Asthma -- Adult Discharge ED Provider: Vish Babb [facility] [place] General Stated complaint: SOA Time Seen by Provider: 02/05/23 09:45 History of Present Illness Provider Complaint: She states that for the past 4 days she has had chest congestion and sinus congestion. Related Data Home Medications Medication Instructions Recorded Confirmed jfsswqqhgm-gbasvbppofpvs-lqexydrr 1 cap PO Q8H PRN 02/12/20 12/02/22 50 mg-300 mg-40 mg capsule (Fioricet) cetirizine 10 mg capsule (Zyrtec) mg PO 02/12/20 12/02/22 diltiazem HCl 180 mg 180 mg PO DAILY 02/12/20 12/02/22 capsule,extended release 24 hr hydrochlorothiazide 12.5 mg tablet 12.5 mg PO DAILY 02/12/20 12/02/22 olmesartan 20 mg tablet 20 mg PO DAILY 02/12/20 12/02/22 omega-3-dha 120 mg-epa 180 mg-fish cap PO 02/12/20 12/02/22 oil-vitamin D3 1,000 unit capsule vitamin D3 20 mcg-vit K2 180 tab PO 02/12/20 12/02/22 mcg-calcium fructoborate 216 mg tablet omeprazole 40 mg capsule,delayed 40 mg PO DAILY 06/25/21 12/02/22 release Previous Rx's Medication Instructions Recorded albuterol sulfate 90 mcg/actuation 2 inh inhalation Q6H PRN shortness 04/05/22 aerosol inhaler of breath or wheezing 90 days #8.5 grams denosumab 60 mg/mL subcutaneous See Rx Instructions .Route 10/14/22 syringe ([employer]) .COMPLEX #1 mL azelastine 137 mcg (0.1 %) nasal 2 s
[2023-02-05 09:55] VITALS: BP 179/82; PULSE 88; RESP 20; TEMP 36.9; O2SAT 97; BMI 27.8
[2023-02-05 10:12] VITALS: BP 179/82; PULSE 88; RESP 20; TEMP 36.9; O2SAT 97
== END 2023-02-05 10:15 | disposition home or self-care (01) ==
PROVIDERS: Emergency Provider Nurse Practitioner Family; PCP Internal Medicine
DX: J45.901 Unspecified asthma with (acute) exacerbation (principal); R06.02 Shortness of breath; R09.81 Nasal congestion; R09.89 Other specified symptoms and signs involving the circulatory and respiratory systems
CPT/HCPCS: 99212; 99214; G0463

== ENCOUNTER 2023-06-22 15:46 | Outpatient (CLI) | payer OTHER, SELFPAY ==
--- NOTE | 2023-06-22 15:53 | MM_ITS ---
PROCEDURE INFORMATION: Exam: MG Bilateral Screening 3D Mammography Exam date and time: 06/22/2023 3:46 PM Age: 67 years old Clinical indication: Screening examination TECHNIQUE: Imaging protocol: Bilateral Screening tomosynthesis and 2D mammography including computer-aided detection (CAD) when performed. COMPARISON: 1. MG MM DIG SCREENING MAMM BI W/CAD 06/17/2022 10:51 AM 2. MG MM DIG MAMM DX UNILAT LT CAD 03/10/2021 2:46 PM FINDINGS: MAMMOGRAPHY: Breast composition: There are scattered areas of fibroglandular density. Mass: None. Architectural distortion: None. Calcifications: No suspicious calcifications. Asymmetric density: None. Skin thickening: None. Axillary adenopathy: None. IMPRESSION: No mammographic evidence of malignancy. Annual screening is recommended unless otherwise clinically indicated. ASSESSMENT: BI-RADS Category 1: Negative
--- NOTE | 2023-06-22 16:00 | XR_ITS ---
FINAL REPORT CLINICAL HISTORY: LOW BACK PAIN pt states hx of compression fracture FINDINGS: LUMBAR SPINE Five views demonstrate mild L2 compression fracture. There is moderate diffuse degenerative disc disease. There is mild degenerative subluxation of L3-4 and L4-5. IMPRESSION: Mild L2 compression fracture. Degenerative changes as detailed above. Reviewed, Interpreted and Dictated by Terri Martines MD Transcribed by Abi Philip Authenticated and [facility]
[2023-06-22 17:30] LABS: Basophils # 0.1 K/mm3 (0-0.2); Basophils % 0.6 % (0.1-2.0); Eosinophils # 0.2 K/mm3 (0.0-0.4); Eosinophils % 2.7 % (0.1-12.0); Hematocrit 37.7 % (37.0-47.0); Hemoglobin 12.3 g/dL (12.2-16.2); Lymphocytes # 2.6 K/mm3 (0.7-4.5); Lymphocytes % 31.1 % (10-50); Mean Corpuscular HGB Conc 32.7 g/dL (31.8-35.4); Mean Corpuscular Volume 85.8 fl (81-99); Mean Platelet Volume 8.8 fl (7.4-10.4); Monocytes # 0.5 K/mm3 (0.1-1.0); Monocytes % 6.4 % (1.7-9.3); Neutrophils % 59.1 % (37.0-80.0); Platelet Count 298 K/mm3 (142-424); Red Blood Count 4.39 M/mm3 (4.20-5.40); Red Cell Distribution Width 14.8 % (11.5-17.5); White Blood Count 8.4 K/mm3 (4.8-10.8)
[2023-06-22 19:50] LABS: Alanine Aminotransferase 14 U/L (12-78); Albumin Level 4.1 g/dl (3.5-5.0); Alkaline Phosphatase 85 U/L (38-126); Anion Gap 12.1 mEq/L (5-15); Aspartate Amino Transferase 25 U/L (14-36); Bilirubin,Total 0.6 mg/dl (0.2-1.3); Blood Urea Nitrogen 15 mg/dl (7-17); Calcium 9.6 mg/dl (8.4-10.2); Carbon Dioxide 24 mmol/L (22.0-30.0); Chloride 105 mmol/L (98-107); Chol/HDL Ratio 4.5 (1-3.5); Cholesterol 227 mg/dl (140-200); Estimated Glomerular Filt Rate 62 ml/min (>60); GFR (African American) 75 ML/MIN (>60); Globulin 2.1 g/dL (1.3-3.2); Glucose 79 mg/dl (74-100); HDL Cholesterol 50 mg/dl (40-60); Potassium 4.1 mmoL/L (3.5-5.1); Sodium 137 mmol/L (136-145); Total Protein,Serum 6.2 g/dl (6.3-8.2); Triglycerides 137 mg/dl (30-150); Uric Acid 6.5 mg/dl (2.5-6.2); VLDL Cholesterol 27 mg/dL (0-40)
[2023-06-22 20:01] LABS: Direct LDL Cholesterol 151.49 mg/dL (100-129)
== END 2023-06-22 23:59 | disposition home or self-care (01) ==
PROVIDERS: PCP Internal Medicine; Visit Provider Obstetrics & Gynecology
DX: M54.59 Other low back pain (principal); Z12.31 Encounter for screening mammogram for malignant neoplasm of breast; Z87.81 Personal history of (healed) traumatic fracture; Z79.899 Other long term (current) drug therapy
CPT/HCPCS: 72110; 77063; 77067; 80053; 80061; 84550; 85025

== ENCOUNTER 2023-08-17 15:21 | Outpatient (CLI) | payer OTHER, SELFPAY ==
--- NOTE | 2023-08-17 15:22 | XR_ITS ---
FINAL REPORT CLINICAL HISTORY: Osteopenia, Screening Dexa Scan COMPARISON: 09/04/2021 FINDINGS: Using L1-4, the bone mineral density of the spine is 1.052 g/cm2, corresponding to T-score of 0.0, within normal limits. Previously was 0.963 with T-score of -0.8 Using the left hip, the bone mineral density of the femoral neck is 0.733 g/cm2, corresponding to a T-score of -1.7 which is consistent with osteopenia. Previously was 0.593 with T-score of -2.3. Using the right hip, the bone mineral density of the femoral neck is 0.781 g/cm2, corresponding to a T-score of -1.3 which is consistent with osteopenia. Previously was 0.621 with T-score of -2.1. FRAX not reported because patient is being treated for osteoporosis. NOTE: T-score: Standard deviation compared with peak bone mass of young adult mean. *Following the recommendations of the International Society of Bone densitometry, classification of hip BMD is based on the lower of two T-scores; total hip or femoral neck. IMPRESSION: Diminished bone mineral density consistent with osteopenia. Reviewed, Interpreted and Dictated by Terri Martines MD Transcribed by Leandra Castro Authenticated and . [facility]
== END 2023-08-17 23:59 | disposition home or self-care (01) ==
LOC: RAD 15:22
PROVIDERS: PCP Internal Medicine; Visit Provider Obstetrics & Gynecology
DX: N95.1 Menopausal and female climacteric states; M85.89 Other specified disorders of bone density and structure, multiple sites
CPT/HCPCS: 77080

== ENCOUNTER 2023-08-31 11:35 | Outpatient (CLI) | payer OTHER, SELFPAY ==
[2023-08-31 11:44] LABS: Coronavirus 19, PCR Not Detected (NotDetected); Influenza A, PCR Not Detected (NotDetected); Influenza B, PCR Not Detected (NotDetected)
== END 2023-08-31 23:59 | disposition home or self-care (01) ==
LOC: LAB 11:35
PROVIDERS: PCP Internal Medicine; Visit Provider Internal Medicine
DX: B34.9 Viral infection, unspecified (principal)
CPT/HCPCS: 87636

== ENCOUNTER 2023-09-21 15:53 | Outpatient (CLI) | payer OTHER, SELFPAY ==
[2023-09-21 15:58] LABS: MANUAL DIFFERENTIAL MANUAL DIFFERENTIAL (MANUAL DIFF)
[2023-09-21 16:59] LABS: Basophils # 0.1 K/mm3 (0-0.2); Basophils % 0.6 % (0.1-2.0); Eosinophils # 0.3 K/mm3 (0.0-0.4); Eosinophils % 2.9 % (0.1-12.0); Hemoglobin 11.9 g/dL (12.2-16.2); Lymphocytes # 2.8 K/mm3 (0.7-4.5); Lymphocytes % 30.6 % (10-50); Mean Corpuscular HGB Conc 32.1 g/dL (31.8-35.4); Mean Corpuscular Hemoglobin 27.7 pg (27.0-31.2); Mean Corpuscular Volume 86.3 fl (81-99); Mean Platelet Volume 7.7 fl (7.4-10.4); Monocytes # 0.7 K/mm3 (0.1-1.0); Neutrophils # 5.3 K/mm3 (1.8-7.8); Neutrophils % 57.9 % (37.0-80.0); Platelet Count 503 K/mm3 (142-424); Red Blood Count 4.29 M/mm3 (4.20-5.40); Red Cell Distribution Width 14.6 % (11.5-17.5); White Blood Count 9.1 K/mm3 (4.8-10.8)
[2023-09-21 17:56] LABS: Alanine Aminotransferase 15 U/L (12-78); Albumin Level 4.1 g/dl (3.5-5.0); Albumin/Globulin Ratio 1.6 (1.1-1.8); Alkaline Phosphatase 82 U/L (38-126); Anion Gap 14.3 mEq/L (5-15); Aspartate Amino Transferase 23 U/L (14-36); Bilirubin,Total 0.7 mg/dl (0.2-1.3); Blood Urea Nitrogen 25 mg/dl (7-17); Calcium 10.3 mg/dl (8.4-10.2); Carbon Dioxide 21 mmol/L (22.0-30.0); Chloride 103 mmol/L (98-107); Estimated Glomerular Filt Rate 49 ml/min (>60); GFR (African American) 59 ML/MIN (>60); Globulin 2.5 g/dL (1.3-3.2); Glucose 93 mg/dl (74-100); Potassium 4.3 mmoL/L (3.5-5.1); Sodium 134 mmol/L (136-145); Total Protein,Serum 6.6 g/dl (6.3-8.2)
[2023-09-21 18:11] LABS: Free T4 (Free Thyroxine) 1.45 ng/dl (0.78-2.19)
[2023-09-21 18:13] LABS: Eosinophils % 1 % (0-3); Hypochromasia 1+; Lymphocytes % 33 % (10-50); Monocytes % 6 % (2-9); Neutrophils % 60 % (42-76); Total Cells Counted 100
[2023-09-21 18:14] LABS: Platelet Estimate Slight Increase
[2023-09-21 18:22] LABS: Thyroid Stimulating Hormone 1.26 uIU/mL (0.465-4.68)
== END 2023-09-21 23:59 | disposition home or self-care (01) ==
LOC: LAB 15:54
PROVIDERS: PCP Internal Medicine; Visit Provider Nurse Practitioner
DX: J01.10 Acute frontal sinusitis, unspecified (principal); R53.83 Other fatigue
CPT/HCPCS: 36415; 80053; 84439; 84443; 85007; 85014; 85018; 85048; 85049

== ENCOUNTER 2023-09-26 10:46 | Outpatient (CLI) | payer OTHER, SELFPAY ==
[2023-09-30 04:08] LABS: D001-IgE D pteronyssinus <0.10 kU/L (Class 0); D002-IgE D farinae <0.10 kU/L (Class 0); E001-IgE Cat Dander <0.10 kU/L (Class 0); E005-IgE Dog Dander <0.10 kU/L (Class 0); E072-IgE Mouse Urine <0.10 kU/L (Class 0); G002-IgE Bermuda Grass <0.10 kU/L (Class 0); G006-IgE Timothy Grass <0.10 kU/L (Class 0); I006-IgE Cockroach, German <0.10 kU/L (Class 0); Immunoglobulin E, Total <2 IU/mL (6-495); M001-IgE Penicillium chrysogen <0.10 kU/L (Class 0); M002-IgE Cladosporium herbarum <0.10 kU/L (Class 0); M003-IgE Aspergillus fumigatus <0.10 kU/L (Class 0); M006-IgE Alternaria alternata <0.10 kU/L (Class 0); T001-IgE Maple/Box Elder <0.10 kU/L (Class 0); T003-IgE Common Silver Birch <0.10 kU/L (Class 0); T006-IgE Cedar, Mountain <0.10 kU/L (Class 0); T007-IgE Oak, White <0.10 kU/L (Class 0); T008-IgE Elm, American <0.10 kU/L (Class 0); T010-IgE Walnut <0.10 kU/L (Class 0); T011-IgE Maple Leaf Sycamore <0.10 kU/L (Class 0); T014-IgE Cottonwood <0.10 kU/L (Class 0); T015-IgE Ash, White <0.10 kU/L (Class 0); T022-IgE Pecan, Hickory <0.10 kU/L (Class 0); T070-IgE White Mulberry <0.10 kU/L (Class 0); W001-IgE Ragweed, Short <0.10 kU/L (Class 0); W011-IgE Thistle, Russian <0.10 kU/L (Class 0); W014-IgE Pigweed, Common <0.10 kU/L (Class 0); W018-IgE Sheep Sorrel <0.10 kU/L (Class 0)
== END 2023-09-26 23:59 | disposition home or self-care (01) ==
PROVIDERS: PCP Internal Medicine; Visit Provider Nurse Practitioner
DX: R53.83 Other fatigue (principal); J01.10 Acute frontal sinusitis, unspecified
CPT/HCPCS: 36415; 82785; 86003

== ENCOUNTER 2024-01-02 11:10 | Outpatient (CLI) | payer MEDICARE, SELFPAY ==
[2024-01-02 11:18] VITALS: BP 158/77; PULSE 82; RESP 18; TEMP 36.4; O2SAT 98; BMI 26.7
[2024-01-02] MEDS: DENOSUMAB 60 MG/ML SYRINGE SUBCUT (11:22)
[2024-01-02 11:25] VITALS: BP 155/78; PULSE 80; RESP 18; TEMP 36.4; O2SAT 98
== END 2024-01-02 11:26 | disposition home or self-care (01) ==
LOC: INF 11:12
PROVIDERS: PCP Internal Medicine; Visit Provider Nurse Practitioner Obstetrics & Gynecology
DX: M85.80 Other specified disorders of bone density and structure, unspecified site (principal)
CPT/HCPCS: 96372; J0897

== ENCOUNTER 2024-01-31 09:36 | Outpatient (CLI) | payer MEDICARE, SELFPAY | END 2024-01-31 23:59 | disposition home or self-care (01) | LOC: RT 09:37 | PROVIDERS: PCP Internal Medicine; Visit Provider Internal Medicine Pulmonary Disease | DX: R06.02 Shortness of breath (principal); J44.9 Chronic obstructive pulmonary disease, unspecified | CPT/HCPCS: 94060 ==

== ENCOUNTER 2024-03-02 15:10 | Emergency (ER) | payer MEDICARE, SELFPAY ==
[2024-03-02 15:25] VITALS: BP 175/103; PULSE 92; RESP 18; TEMP 36.5; O2SAT 98; BMI 26.6
--- NOTE | 2024-03-02 15:42 | ED_ITS ---
Discharge Plan Disposition Patient Disposition: Home, Self-Care Condition: Good Prescriptions Prescriptions: New prednisone 10 mg tablet 10 mg PO DIRECTED 9 Days Qty: 21 0RF Rx Instructions: Take 4 tablets daily for 3 days, then take 2 tablets daily for 3 days, then take 1 tablet daily for 3 days, then stop. acyclovir 800 mg tablet 800 mg PO 5XDAY 7 Days Qty: 35 0RF triamcinolone acetonide 0.1 % cream 1 applic topical BID PRN (Reason: itching) Qty: 30 0RF No Action fluticasone propion-salmeterol 250-50 mcg/dose blister with device 1 ea INHALATION BID Patient Comments: INHALE 1 PUFF BY MOUTH TWICE DAILY diltiazem HCl 180 mg capsule,extended release 24hr 180 mg PO DAILY Patient Comments: TAKE ONE CAPSULE BY MOUTH EVERY DAY omeprazole 40 mg capsule,delayed release(DR/EC) 40 mg PO DAILY Patient Comments: TAKE ONE CAPSULE BY MOUTH EVERY DAY montelukast 10 mg tablet 10 mg PO DAILY Patient Comments: TAKE ONE TABLET BY MOUTH EVERY DAY olmesartan 20 mg tablet 20 mg PO DAILY Patient Comments: TAKE ONE TABLET BY MOUTH EVERY DAY hydrochlorothiazide 12.5 mg tablet 12.5 mg PO DAILY Patient Comments: TAKE ONE TABLET BY MOUTH EVERY DAY Referrals Follow up/Referrals: Bird Stanton MD [Primary Care Provider] - See instructions Activity Restrictions/Add. Instructions Additional Instructions/Restrictions: Drink plenty of fluid with the medications. Take tylenol or ibuprofen for pain or fever. Take the medications as directed. Follow up with your regular doctor. GO TO THE ER FOR ANY WORSENING SYMPTOMS Clinical Impressions Clinical Impression: Shingles Instructions Patient Instructions: DI for Shingles, Prednisone, Triamcinolone Topical, Acyclovir Print Language Print Language: Kiswahili Discharge ED Provider: Vish Babb [facility] General Stated complaint: Rash around waist line,itches,soliman Mode of Arrival: Ambulatory Source of Information: Patient Limitations: No Limitations Time Seen by Provider: 03/02/24 15:42 Description of Symptoms (Recalled from Triage Doc. by RN): PATIENT C/O RED, BURNING RASH TO LEFT SIDE/WAIST AREA THAT STARTED YESTERDAY EVENING HEENT Symptoms (Recalled from RN notes): No Resp Symptoms (Recalled from RN notes): No Skin Symptoms (Recalled from RN notes): Yes MS Symptoms (Recalled from RN notes): No Functional Status (Recalled from RN notes): WNL History of Present Illness Provider Complaint: She states that for the past 2 days she has had a painful rash that starts around the middle of her lower back and then extends around her left side. Related Data Home Medications ?Medication ?Instructions ?Recorded ?Confirmed diltiazem HCl 180 mg capsule,24 180 mg PO DAILY 03/02/24 03/02/24 hr,extended release fluticasone 250 mcg-salmeterol 50 1 ea inhalation BID 03/02/24 03/02/24 mcg/dose blistr powdr for inhalation hydrochlorothiazide 12.5 mg tablet 12.5 mg PO DAILY 03/02/24 03/02/24 montelukast 10 mg tablet 10 mg PO DAILY 03/02/24 03/02/24 olmesartan 20 mg tablet 20 mg PO DAILY 03/02/24 03/02/24 omeprazole 40 mg capsule,delayed 40 mg PO DAILY 03/02/24 03/02/24 release Previous Rx's ?Medication ?Instructions ?Recorded acyclovir 800 mg tablet 800 mg PO 5XDAY 7 days #35 tabs 03/02/24 prednisone 10 mg tablet 10 mg PO DIRECTED 9 days #21 03/02/24 tabs triamcinolone acetonide 0.1 % 1 applic topical BID PRN itching 03/02/24 topical cream #30 grams Allergies Allergy/AdvReac Type Severity Reaction Status Date / Time codeine (CODEINE) Allergy Unknown NAUSEA/VOMI Verified 02/07/24 14:29 TTING diphenhydramine (From Allergy Unknown I-HIVES Verified 02/07/24 14:29 BENADRYL) morphine (MORPHINE) Allergy Unknown NA-NAUSEA/V Verified 02/07/24 14:29 OMITING nebivolol (From BYSTOLIC) Allergy Unknown ASTHMA Verified 02/07/24 14:29 Penicillins (PENICILLINS) Allergy Unknown REACTION Verified 02/07/24 14:29 A CHILD-UNK Sulfa (Sulfonamide Allergy Unknown I-HIVES Verified 02/07/24 14:29 Antibiotics) (SULFA (SULFONAMIDE ANTIBIOTICS)) Worker's Comp Is this a Worker's Comp case?: No [facility] Disclaimer: The information contained in this section may have been updated after the patient was seen, as this information can be updated by other users. Medical History Laryngitis Vocal cord edema Hoarseness Fatigue History of smoking 30 or more pack years Dyspnea on exertion Allergic rhinitis Acute sinusitis Asthma Surgical History History of sinus surgery History of bronchoscopy H/O: hysterectomy Family History Other Hypertension Parkinson disease Social History Smoking Status: Former smoker years smoked: 32 smoking status stop date: 1998 alcohol intake: never substance use type: denies use current occupational status: employed and retired Travel in the last 8 weeks: Inside the [place] Have you lived/traveled outside US in past 30 days?: No Contact w/someone who lives/traveled outside US past 30 days?: No Exposure to someone with infectious disease in past 14 days?: No Do you have a fever (greater than 100.4 F or 38 C)?: No Have you tested positive for COVID-19: No Exposed to someone with COVID-19 in past 14 days?: No Do you have a sore throat?: No Do you have a cough?: No Do you have any weakness?: No Do you have any diarrhea?: No Are you experiencing any unusual bleeding?: No Do you have any muscle aches/pain?: No Do you have any abdominal pain?: No Are you experiencing loss of taste or smell?: No ROS Obtained: Yes All systems reviewed & no additional complaints except as documented Constitutional Constitutional: Denies chills and Denies fever(s) Eyes Eyes: Denies eye discharge ENT Ears, Nose, Mouth, and Throat: Denies dizziness, Denies otalgia and Denies sore throat Cardiovascular Cardiovascular: Denies chest pain Respiratory Respiratory: Denies shortness of breath, Denies chest congestion, Denies cough, Denies stridor and Denies wheezing Gastrointestinal Gastrointestingal: Denies nausea or vomiting Musculoskeletal Musculoskeletal: Reports system reviewed and no additional complaints, except as documented and Denies arthralgias Integumentary/Breasts Skin/Breast: Reports as per HPI and Reports rash Neurologic Neurologic: Denies dizziness and Denies paresthesias Allergic/Immunologic Allergic/Immunologic: Denies wheezing Physical Exam General General appearance: alert and in no apparent distress Head Head exam: atraumatic, normocephalic and normal inspection Eye Eye exam: Present normal appearance, PERRL and EOMI ENT ENT exam: Present normal exam, normal oropharynx, mucous membranes moist, TM's normal bilaterally and normal external ear exam Neck Neck exam: Present normal inspection, full ROM and trachea midline; Absent meningismus or lymphadenopathy Chest Chest inspection: Present normal inspection and symmetric chest wall rise; Absent tenderness Respiratory Respiratory exam: Present normal lung sounds bilaterally; Absent respiratory distress Cardiovascular Cardiovascular exam: Present regular rate and normal rhythm; Absent JVD Abdominal Exam Abdominal exam: Present soft and normal bowel sounds; Absent distention, tenderness or guarding Extremities Exam Extremities exam: Present normal inspection, full ROM and normal capillary refill; Absent calf tenderness Back Exam Back exam: Present normal inspection; Absent tenderness Neurological Exam Neurological exam: Present alert and oriented X3 Psychiatric Psychiatric exam: Present normal affect and normal mood Skin Skin exam: Present rash (there is a patch of vesicles that begins on her lower back and extends around her left flank to her abdomen. ) Lymphatic Lymphatic Findings: no adenopathy Medical Decision Making Medical Records Medical records reviewed: No I reviewed the patient's medical records. Screening: Per USPSTF and CDC recommendations, given the prevalence of disease in our region, it is our hospital?s policy to screen for HIV and viral Hepatitis for all patients aged 18 and over and those with ongoing risk factors. Martin Inquiry Pt receiving controlled substance: No Vital Signs: 03/02/24 15:25 Temperature 97.7 F Temperature Source Oral Pulse Rate [Left Brachial] 92 H Respiratory Rate 18 Blood Pressure [Left Arm] 175/103 H Blood Pressure Mean [Left Arm] 127 Blood Pressure Source [Left Arm] Automatic Cuff Blood Pressure Position [Left Arm] Sitting 02 Sat by Pulse Oximetry 98 Oxygen Delivery Method Room Air
[2024-03-02 16:00] VITALS: BP 175/103; PULSE 92; RESP 18; TEMP 36.5; O2SAT 98
== END 2024-03-02 16:05 | disposition home or self-care (01) ==
PROVIDERS: Emergency Provider Nurse Practitioner Family; PCP Internal Medicine
DX: B02.9 Zoster without complications (principal)
CPT/HCPCS: 99213; G0381

== ENCOUNTER 2024-04-16 16:40 | Outpatient (CLI) | payer MEDICARE, SELFPAY | END 2024-04-16 23:59 | disposition home or self-care (01) | LOC: LAB.DROPOF 04-17 18:00 | PROVIDERS: PCP Internal Medicine; Visit Provider Internal Medicine | DX: L97.929 Non-pressure chronic ulcer of unspecified part of left lower leg with unspecified severity (principal); L08.9 Local infection of the skin and subcutaneous tissue, unspecified | CPT/HCPCS: 87070; 87077; 87186; 87205 ==

== ENCOUNTER 2024-05-01 16:05 | Outpatient (CLI) | payer MEDICARE, SELFPAY | END 2024-05-01 23:59 | disposition home or self-care (01) | LOC: LAB.DROPOF 16:05 | PROVIDERS: PCP Internal Medicine; Visit Provider Internal Medicine | DX: L08.9 Local infection of the skin and subcutaneous tissue, unspecified (principal); L97.929 Non-pressure chronic ulcer of unspecified part of left lower leg with unspecified severity | CPT/HCPCS: 87070; 87077; 87186; 87205 ==

== ENCOUNTER 2024-07-04 10:45 | Outpatient (CLI) | payer MEDICARE, SELFPAY ==
--- OUTSIDE RECORDS SUMMARY | 2024-07-04 10:50 | XMS_ITS ---
Author Organization Unknown Allergies, Adverse Reactions and Alerts Date IsAllergic OnsetDate Allergen Reaction Type Severity Lexa rgyCode Legacyallergictoid ReactionCode ReactionCodeSystemID 05/25 00:00 :00 1 Nebivolol dizziness 05/25 00:00 :00 1 diphenhyd rAMINE hives 05/25 00:00 :00 1 Morphine stomach upset 05/25 00:00 :00 1 Codeine stomach upset 05/25 00:00 :00 1 Sulfa Antibioti cs stomach upset 05/25 00:00 :00 1 Penicilli n rash 05/23 00:00 :00 1 Nebivolol dizziness 05/23 00:00 :00 1 diphenhyd rAMINE hives 05/23 00:00 :00 1 Morphine stomach upset 05/23 00:00 :00 1 Codeine stomach upset 05/23 00:00 :00 1 Sulfa Antibioti cs stomach upset 05/23 00:00 :00 1 Penicilli n rash 05/21 00:00 :00 1 Nebivolol dizziness 05/21 00:00 :00 1 diphenhyd rAMINE hives 05/21 00:00 :00 1 Morphine stomach upset 05/21 00:00 :00 1 Codeine stomach upset 05/21 00:00 :00 1 Sulfa Antibioti cs stomach upset 05/21 00:00 :00 1 Penicilli n rash 05/04 00:00 :00 1 Nebivolol dizziness 05/04 00:00 :00 1 diphenhyd rAMINE hives 05/04 00:00 :00 1 Morphine stomach upset 05/04 00:00 :00 1 Codeine stomach upset 05/04 00:00 :00 1 Sulfa Antibioti cs stomach upset 05/04 00:00 :00 1 Penicilli n rash
[2024-07-04] MEDS: DENOSUMAB 60 MG/ML SYRINGE SUBCUT (10:59)
[2024-07-04 11:10] VITALS: BP 147/76; PULSE 79; RESP 18; TEMP 36.7; O2SAT 99
== END 2024-07-04 11:10 | disposition home or self-care (01) ==
LOC: INF 10:48
PROVIDERS: PCP Family Medicine; Visit Provider Nurse Practitioner Obstetrics & Gynecology
DX: M81.0 Age-related osteoporosis without current pathological fracture (principal)
CPT/HCPCS: 96372; J0897

== ENCOUNTER 2024-08-28 13:42 | Outpatient (CLI) | payer MEDICARE, SELFPAY ==
--- OUTSIDE RECORDS SUMMARY | 2024-05-25 05:45 | XMS_ITS ---
Author Organization Daniel Address [address] [facility] [address] [facility] [address] [place] [id number] Care Team Providers Care Firer Boiler Name Role Phone Kavin Mandujano Unavailable [phone] REASON FOR VISIT 3 week f/u with fasting labs Encounters Encounter Location Date Provider Diagnosis [facility] [address] [facility] [address] [place] [phone] 05/25/2024 Kavin Mandujano Plan Of Treatment Next Appt Details Provider Name:Kavin Yarbrough ry, 02/06/2025 09:45:00 AM, [address] [facility], [address], [place], [phone], Progress Notes * Alia UMANAOB:1955 ( 69 yo F)Acc No.[id number]:05/25/2024 Progress Notes Patient: Abi BROWN Provider: Mary Mandujano M.D. :1955 A ge:68 Y S ex:Female Date:05/25/2024 Address:[address] [place] [address] [address] [id number] Subjective: * Chief Complaints: * 1 . 3 week f/u with fasting labs. * Medical History: Objective: * Vitals: Assessment: Plan: * Treatment: * Images: Billing Information: * Visit Code: * Procedure Codes: * Electronic signature of Kayla Mandujano MD on 08/28/2024 at 01:48 PM EDT Sign off status: Pending * Provider: Mary Mandujano M.D. Date: 0 05/25/2024 Generated for Alirioi jonathan/Lizzy/eTransmitting on: 0 08/28/2024 01:48 PM EDT
--- OUTSIDE RECORDS SUMMARY | 2024-08-06 05:30 | XMS_ITS ---
Author Organization [facility] Address [address] [place] [id number] Care Team Providers Care Engineering Job Titles Name Role Phone Kavin Mandujano Unavailable [phone] Allergies Allergen (clinical drug ingredient) Drug/Non Drug [...] Interpretation:5.39 Performing Lab: Notes/Report: Test performed by [facility] [address] [place], [place] [address] [address], [place] [address] Sukh Arellano MD, Certified Nursing Assistant Instructor CLIA: [id number] Calcium, Ionized 5.39 4.60-5.30 mg/dL P-Comprehensive Metabolic Pa charlene (CMP) Reviewed date:08/08/2024 08:46:10 AM Interpretation:Normal Performing Lab: Notes/Report: Test performed by [facility] [address] [place], [place] [address], [place] [address] Sukh Arellano MD, Certified Nursing Assistant Instructor CLIA: [id number] Sodium 136 135-145 mmol/L Potassium 4.4 3.5-5.3 [...] 3.5 Performing Lab: Notes/Report: Test performed by [facility], [address] , [facility], [place] [address] Sukh Arellano MD, Certified Nursing Assistant Instructor CLIA: [id number] Cholesterol 223 <200 mg/dL Triglycerides 155 <150 [...] Interpretation:Normal Performing Lab: Notes/Report: Test performed by [facility] [employer] [facility] , [address], [place] [address] Sukh Arellano MD, Certified Nursing Assistant Instructor CLIA: [id number] TSH reflex to FT4 2.60 0.43-5.25 mU/L REASON FOR VISIT 3 Month Check Up w/ Fasting Labs Medications Medication SIG (Take, Route, Frequency, Duration) Notes Start Date End Date Status Jkslyozxxy-AKBQ-Sofypwed 50-325-40 MG 1 capsule as needed Orally [...] W/U Status Risk Notes Problem Mixed hyperlipidemia (298947034) Mixed hyperlipidemia (E78.2) Active confirmed Problem Hypercalcemia (86432038) Hypercalcemia (E83.52) Active confirmed Vital Signs Blood pressure systolic 150 mm Hg 08/07/19 25 Blood pressure diastolic 74 mm Hg 025 Heart Rate 88 /min 08/06/2024 Height 63 in 08/06/2024 Weight 165.2 lbs 08/06/2024 BMI 29.26 kg/m2 08/06/2024 Encounters Encounter Location Date Provider Diagnosis [facility] [address] [facility] [address] [place] [address], [place] [phone] 08/06/2024 Kavin Mandujano Essential hypertensi on I10 [...] [address], [address], [place], [id number], Progress Notes * Alia UMANAOB:1955 ( 69 yo F)Acc No.[id number]:08/06/2024 Progress Notes Patient: Abi BROWN Provider: Mary Mandujano M.D. :1955 A ge:68 Y S ex:Female Date:08/06/2024 Address:[address] [place] [address] [id number] Subjective: * Chief Complaints: * 1 . [...] * Hospitalization/Major Diagno stic Procedure: A sthma [facility] 2011. * Family History: F ather: . [...] puff Inhalation Twice a day , Taking Hiimelsyte-PLEL-Ggtmdufv 50-325-40 MG Capsule 1 capsule as needed [...] H ypercalcemia - E83.52 4 . B ID 29.0-29.9,adult - Z68.29 Plan: * Treatment: Value [...] * Images: Billing Information: * Visit Code: 84347 Office Visit, Est Pt., Level 4. * [...] 0 08/06/2024 Generated for Guillermina castillo/Lizzy/Holgersmitting on: 0 08/28/2024 01:48 PM EDT History and Physical Notes * HPI (History [...]
--- OUTSIDE RECORDS SUMMARY | 2024-08-15 10:04 | XMS_ITS ---
Author Organization [facility] Address [address] [facility] [address] [facility] [address] [place] [id number] Care Team Providers Care Wet Process Assistant Head Miller Name Role Phone Kavin Mandujano Julio [phone] REASON FOR VISIT nitin, BD and CCS Encounters Encounter Location Date Provider Diagnosis [facility] [address] [place] [id number] 08/15/2024 Kavin Mandujano Screening for breast cancer Z12.39 Assessments Encounter Date Diagnosis (ICD Code) Assessment Notes Treatment Notes Treatment Clinical Notes Section Notes 08/15/2024 Screening for breast cancer (ICD-10 - Z12.39) Plan Of Treatment Pending Test Test Name Order Date Mammogram 08/15/2024 Next Appt Details Provider Name:Kavin Yarbrough ry, 02/06/2025 09:45:00 AM, [address], [address], [place], [phone], Progress Notes * Alia UMANAOB:1955 ( 69 yo F)Acc No.[id number]:08/15/2024 Patient: Abi BROWN :1955 A ge:69 Y S ex:Female Address:[address] [place] [address], [place] [address] Subjective: * Chief Complaints: * m am, BD and CCS * Medical History: * Surgical History: * Hospitalization/Major Diagno stic Procedure: * Medications: Objective: * Vitals: * Physical Examination: Assessment: * Assessment: 1. S creening for breast cancer - Z12.39 (Primary) Plan: * Treatment: * Procedure Codes: * true * Date: Generated for Guillermina castillo/Lizzy/Jarocho on: 0 08/28/2024 01:48 PM EDT
--- NOTE | 2024-08-28 13:44 | MM_ITS ---
PROCEDURE INFORMATION: Exam: MG Bilateral Screening 3D Mammography Exam date and time: 08/28/2024 1:56 PM Age: 69 years old Clinical indication: Screening examination TECHNIQUE: Imaging protocol: Bilateral Screening tomosynthesis and 2D mammography including computer-aided detection (CAD) when performed. COMPARISON: 1. MG MM DIG SCREENING MAMM BI W/CAD 06/22/2023 3:46 PM 2. MG MM DIG SCREENING MAMM BI W/CAD 06/17/2022 10:51 AM FINDINGS: MAMMOGRAPHY: Breast composition: There are scattered areas of fibroglandular density. Mass: No suspicious masses. Architectural distortion: None. Calcifications: No suspicious calcifications. Asymmetric density: None. Skin thickening: None. Axillary adenopathy: None. IMPRESSION: No mammographic evidence of malignancy. Annual screening is recommended unless otherwise clinically indicated. ASSESSMENT: BI-RADS Category 1: Negative.
--- OUTSIDE RECORDS SUMMARY | 2024-08-28 13:49 | XMS_ITS | Patient Health Record ---
Author Organization [facility] Address [address] [facility] [address] [place] [id number] Care Team Providers Care Channel Marketing Coordinator Name Role Phone Kavin Mandujano Unavailable [phone] Allergies Allergen (clinical drug ingredient) Drug/Non Drug [...] Interpretation:5.39 Performing Lab: Notes/Report: Test performed by [facility] [address] [place] [address] , [place] [address] Sukh Arellano MD, Handle Sander Operator CLIA: [id number] Calcium, Ionized 5.39 4.60-5.30 mg/dL P-Comprehensive Metabolic Pa charlene (CMP) Reviewed date:08/08/2024 08:46:10 AM Interpretation:Normal Performing Lab: Notes/Report: Test performed by [facility] [address] [place] [address] Bozena Lanier, [facility] C, [place] [address] Sukh Arellano MD, Handle Sander Operator CLIA: [id number] Sodium 136 135-145 mmol/L Potassium 4.4 3.5-5.3 [...] 3.5 Performing Lab: Notes/Report: Test performed by [facility], [address] , [address] , [place] [address] Sukh Arellano MD, Handle Sander Operator CLIA: [id number] Cholesterol 223 <200 mg/dL Triglycerides 155 <150 [...] Interpretation:Normal Performing Lab: Notes/Report: Test performed by [facility] [address] [place] [address] , [place] [address] Sukh Arellano MD, Handle Sander Operator CLIA: [id number] TSH reflex to FT4 2.60 0.43-5.25 mU/L P-Microalbumin/Creatinine, R andom Urine Sample Reviewed date:05/23/2024 05:43:33 PM Interpretation:Normal Performing Lab: Notes/Report: Test performed by [facility] [address] [place] [address] , [address], [place] [address] Sukh Arellano MD, Handle Sander Operator CLIA: [id number] Albumin/Creatinine Ratio, Urine 15 0-30 ug/m g Microalbumin, Urine, Random 1.9 Creatinine, Urine 124.8 P-Lipid Panel Reviewed date:05/23/2024 05:43:32 PM Interpretation:chol 230, chol/hdl 4.69, non-hdl 181, ldl 154 Performing Lab: Notes/Report: Test performed by [facility] [address] [place] [address] , [address], [place] [address] Sukh Arellano MD, Handle Sander Operator CLIA: [id number] Cholesterol 230 <200 mg/dL Triglycerides 134 <150 [...] Results: 154 Units: mg/dL % Change: - P-Basic Metabolic Panel (BMP ) Reviewed date:05/23/2024 05:43:32 PM Interpretation:Ca 10.6 Performing Lab: Notes/Report: Test performed by [facility], [address] , [address], [place] [address] Sukh Arellano MD, Handle Sander Operator CLIA: [id number] Sodium 136 135-145 mmol/L Potassium 4.7 3.5-5.3 mmol/L Chloride 101 97-108 mmol/L CO2 23 22-32 mmol/L Glucose 99 65-99 mg/dL BUN 18 8-23 mg/dL Creatinine 0.89 0.50-1.00 mg/dL Calcium 10.6 8.6-10.4 mg/dL eGFR by Creatinine 69 >59 mL/min/1.73m2 CBC Venipuncture (in house) Reviewed date:05/22/2024 12:35:35 [...] - 38 platlet 272 100 - 400 Reason For Referral No Information Medications Medication SIG (Take, Route, Frequency, Duration) Notes Start Date End Date Status Klydmgvkup-ZVLV-Wvhxrkpq 50-325-40 MG 1 capsule as needed Orally every 6 hrs as needed Active Vitamin E 268 MG (400 UNIT) 1 capsule Or ally Once a day; Duration: 30 day(s) Active Montelukast Sodium 10 MG 1 tablet Orally Once a day Active Azelastine HCl 0.1 % 2 puffs (1 spray in each nostril) Nasally once a day Active Fluticasone Propionate 50 MCG/ACT 1 spray in each nostril Nasally once a day Active Advair Diskus 250-50 MCG/ACT 1 puff Inha lation Twice a day Active Slow Magnesium/Calcium 64-10 6 MG as directed Orally Active Mupirocin 2 % 1 application Externally Twice a day 05/21/2024 Active Quercetin 500 MG as directed Orally Active Vitamin D3 125 MCG (5000 UT) 1 capsule O rally Once a day; Duration: 30 day(s) Active Olmesartan Medoxomil 20 MG 1 tablet Oral ly Once a day Active dilTIAZem HCl ER 180 MG 1 tablet Orally Once a day Active Cetirizine HCl 10 MG 1 tablet Orally Onc e a day Active Omeprazole 40 MG 1 capsule 1/2 to 1 hour before morning meal Orally Once a day; Duration: 30 day(s) Active hydroCHLOROthiazide 12.5 MG 1 capsule in the morning Orally Once a day Active Ezetimibe 10 MG 1 tablet Orally Once a day; Duration: 90 days 2024 Active Problems Problem Type SNOMED Code ICD Code Onset Dates Problem Status W/U Status Risk Notes Problem Hypercalcemia (89213837) Hypercalcemia (E83.52) Active confirmed Problem Essential hypertension (I10) Active confirmed Problem Mixed hyperlipidemia (975564138) Mixed hyperlipidemia (E78.2) Active confirmed Problem Allergic rhinitis (35190028) Allergic rhinitis, unspecified seasonality, unspecified trigger (J30.9) Active confirmed Vital Signs Heart Rate 88 /min 08/06/2024 Blood pressure diastolic 74 mm Hg 08/06/2024 Height 63 in 08/06/2024 Blood pressure systolic 150 mm Hg 08/06/2024 Weight 165.2 lbs 08/06/2024 BMI 29.26 kg/m2 08/06/2024 Encounters Encounter Location Date Provider Diagnosis [facility] [address] [place], [place] [id number] 05/04/2024 Kavin [place] Open wound of left l ower extremity, initial encounter S81.802A ; Essential hypertension I10 and Allergic rhinitis, unspecified seasonality, unspecified trigger J30.9 [facility] [address] [place], [place] [id number] 05/21/2024 Kavin [place] Open wound of left l ower extremity, subsequent encounter S81.802D and Essential hypertension I10 [facility] [address] [place], [place] [id number] 08/06/2024 Kavin [place] Essential hypertensi on I10 ; Mixed hyperlipidemia E78.2 ; Hypercalcemia E83.52 and BMI 29.0-29.9,adult Z68.29 [facility] [address] [place], [place] [id number] 05/23/2024 Kavin [place] [facility] [address] [place] [id number] 08/08/2024 Kavin [place] [facility] [address] [place], [place] [id number] 08/15/2024 Kavin [place] Screening for breast cancer Z12.39 Assessments Encounter Date Diagnosis (ICD Code) Assessment Notes Treatment Notes Treatment Clinical Notes Section Notes 05/04/2024 Open wound of left lower extremity, initial encounter (ICD-10 - S81.802A) 05/21/2024 Essential hypertension (ICD-10 - I10) 05/21/2024 Open wound of left lower extremity, subsequent encounter (ICD-10 - S81.802D) 05/04/2024 Essential hypertension (ICD-10 - I10) Not at goal today, Blood pressure journal 08/06/2024 Essential hypertension (ICD-10 - I10) Not at goal today. Patient wants to keep a BP journal for a few weeks better decision is madew about increasing dose of Benicar 08/06/2024 Mixed hyperlipidemia (ICD-10 - E78.2) 08/15/2024 Screening for breast cancer (ICD-10 - Z12.39) 05/04/2024 Allergic rhinitis, unspecified seasonality, unspecified trigger (ICD-10 - J30.9) 08/06/2024 Hypercalcemia (ICD-10 - E83.52) 08/06/2024 BMI 29.0-29.9,adult (ICD-10 - Z68.29) Plan Of Treatment Pending Test Test Name Order Date Mammogram 08/15/2024 Next Appt Details Provider Name:Kavin Yarbrough ry, 02/06/2025 09:45:00 AM, [address] [facility], [address], [place], [place], [id number], Insurance Providers Payer Name Payer Address Payer Phone Subscriber Number Group Number Insured Name Patient Relationship to Insured Coverage Start Date Coverage End Date MEDICARE PART B [address] [address] [id number] Eliseo Abi Self - patient is the insured [employer] INSURANCE [address] [place] [id number] Eliseo Abi Self - patient is the insured Medical (General) History Medical History History ICD Code Asthma Hypertension Allergy/Sinus osteopenia Esophageal reflux Surgical History Surgery Date(Month/Year) Total Hysterectomy Dr Wilkes [address] Troncoso 07/09/[address] Rodriguez 11/23/2012 Hospitalization History Reason Date(Month/Year) Asthma [facility] 2011
--- OUTSIDE RECORDS SUMMARY | 2024-08-28 13:49 | XMS_ITS | Clinical Summary ---
Author Organization [facility] Address [address] [place] [address] Care Team Providers Care Mineral Technologist Name Role Phone Bird Stanton MD Primary Care Provider [phone] Immunizations Immunization Administration Dates Next Due Influenza, Unspecified 11/11/2016 Influenza, seasonal, injectable 11/15/19 14,10/22/2013,11/21/2012, 3 Pneumococcal Polysaccharide PPV23 02/21/2013,02/2012 Family History Medical History Relation Name Comments Conversions - Other Mother Asthma Other 1 Conversions - Other Other 2 Pilocyti c astrocytoma of cerebellum Asthma Son 1 Hypertension Son 2 Conversions - Other Son 3 Reactive airways dysfunction syndrome Relation Name Status Comments Mother Other 1 Other 2 Son 1 Son 2 Son 3 Social History Tobacco Use Types Packs/Day Years Used Date Smoking Tobacco: Former Comments Unknown Sex and Gender Information Value Date Recorded Sex Assigned at Not on file Legal Sex Female 6:47 PM EDT Gender Identity Not on file Sexual Orientation Not on file Last Filed Vital Signs Vital Sign Reading Time Taken Comments Blood Pressure 142/61 11/28/2018 2:06 PM EDT Pulse 66 11/28/2018 2:06 PM EDT Temperature 36.7 C (98 F) 11/28/2018 2:06 PM EDT Respiratory Rate 16 11/28/2018 2:06 PM EDT Oxygen Saturation - - Inhaled Oxygen Concentration - - Weight 77.8 kg (171 lb 7.9 oz) 11/28/2018 2:06 P M EDT Height 162.6 cm (5' 4 ) 11/28/2018 2:06 PM EDT Body Mass Index 29.44 11/28/2018 2:06 PM EDT Plan of Treatment Not on file Care Teams Mineral Technologist Relationship Specialty Start Date End Date Bird Stanton MD [address] [facility] [address] [place] [address] [facility] - General 07/04/20
== END 2024-08-28 23:59 | disposition home or self-care (01) ==
LOC: RAD 13:42
PROVIDERS: PCP Family Medicine; Visit Provider Family Medicine
DX: Z12.31 Encounter for screening mammogram for malignant neoplasm of breast (principal); R92.323 Mammographic fibroglandular density, bilateral breasts
CPT/HCPCS: 77063; 77067

== ENCOUNTER 2025-01-09 10:25 | Outpatient (CLI) | payer MEDICARE, SELFPAY ==
--- OUTSIDE RECORDS SUMMARY | 2024-05-04 09:15 | XMS_ITS ---
[facility] Address [address] [place] [id number] Care Team Providers Care Health Analyst Name Role Phone Kavin Mandujano Unavailable [phone] Allergies Allergen (clinical drug ingredient) Drug/Non Drug Allergy documented on EMR Reaction Allergy Type Onset Date Status codeine Codeine stomach upset Drug Allergy Act donnie diphenhydramine diphenhydrAMINE hives Drug Allergy Active morphine Morphine stomach upset Drug Allergy Act donnie nebivolol Nebivolol dizziness Drug Allergy Active Penicillin rash Drug Allergy Active Substance with sulfonamide structure and antibacterial mechanism of action (substance) Sulfa Antibiotics stomach upset Drug Allergy Active REASON FOR VISIT wound on left leg not healing Medications Medication SIG (Take, Route, Frequency, Duration) Notes Start Date End Date Status Vitamin D3 125 MCG (5000 UT) 1 capsule O rally Once a day; Duration: 30 day(s) Active hydroCHLOROthiazide 12.5 MG 1 capsule in the morning Orally Once a day Active Advair Diskus 250-50 MCG/ACT 1 puff Inha lation Twice a day Active Slow Magnesium/Calcium 64-10 6 MG as directed Orally Active Quercetin 500 MG as directed Orally Active Olmesartan Medoxomil 20 MG 1 tablet Oral ly Once a day Active Vitamin E 268 MG (400 UNIT) 1 capsule Or ally Once a day; Duration: 30 day(s) Active Montelukast Sodium 10 MG 1 tablet Orally Once a day Active dilTIAZem HCl ER 180 MG 1 tablet Orally Once a day Active Azelastine HCl 0.1 % 2 puffs (1 spray in each nostril) Nasally once a day Active Dzrgzacppp-ZVQR-Amuxfzps 50-325-40 MG 1 capsule as needed Orally every 6 hrs as needed Active Fluticasone Propionate 50 MCG/ACT 1 spray in each nostril Nasally once a day Active Cetirizine HCl 10 MG 1 tablet Orally Onc e a day Active Doxycycline Hyclate 100 MG 1 capsule Ora lly Twice a day; Duration: 10 day(s) 05/04/2024 Active Omeprazole 40 MG 1 capsule 1/2 to 1 hour before morning meal Orally Once a day; Duration: 30 day(s) Active Problems Problem Type SNOMED Code ICD Code Onset Dates Problem Status W/U Status Risk Notes Problem Essential hypertension (61837776) Essential hypertension (I10) Active confirmed Problem Allergic rhinitis (28981506) Allergic rhinitis, unspecified seasonality, unspecified trigger (J30.9) Active confirmed Vital Signs Blood pressure systolic 146 mm Hg 05/05/19 25 Blood pressure diastolic 70 mm Hg 025 Heart Rate 71 /min 05/04/2024 Height 63 in 05/04/2024 Weight 162.6 lbs 05/04/2024 BMI 28.80 kg/m2 05/04/2024 Encounters Encounter Location Date Provider Diagnosis [facility] [address] [facility] [address] [place], [place] [id number] 05/04/2024 Kavin Mandujano Open wound of left l ower extremity, initial encounter S81.802A ; Essential hypertension I10 and Allergic rhinitis, unspecified seasonality, unspecified trigger J30.9 Assessments Encounter Date Diagnosis (ICD Code) Assessment Notes Treatment Notes Treatment Clinical Notes Section Notes 05/04/2024 Open wound of left lower extremity, initial encounter (ICD-10 - S81.802A) 05/04/2024 Essential hypertension (ICD-10 - I10) Not at goal today, Blood pressure journal 05/04/2024 Allergic rhinitis, unspecified seasonality, unspecified trigger (ICD-10 - J30.9) Plan Of Treatment Medication Medication Name Sig Start Date Stop Date Notes hydroCHLOROthiazide 12.5 MG 1 capsule in the morning Orally Once a day Olmesartan Medoxomil 20 MG 1 tablet Oral ly Once a day Montelukast Sodium 10 MG 1 tablet Orally Once a day dilTIAZem HCl ER 180 MG 1 tablet Orally Once a day Azelastine HCl 0.1 % 2 puffs (1 spray in each nostril) Nasally once a day Fluticasone Propionate 50 MCG/ACT 1 spra y in each nostril Nasally once a day Cetirizine HCl 10 MG 1 tablet Orally Onc e a day Doxycycline Hyclate 100 MG 1 capsule Ora lly Twice a day; Duration: 10 day(s) 05/04/2024 Treatment Notes Assessment Notes Essential hypertension Not at goal today , Blood pressure journal Next Appt Details Follow Up: 3 Weeks fasting, Reason: Provider Name:Kavin Yarbrough , 02/06/2025 09:45:00 AM, [address], [address], [place], [place], [id number], Progress Notes * Alia UMANAOB:1955 ( 69 yo F)Acc No.[id number]:05/04/2024 Progress Notes Patient: Abi BROWN Provider: Mary Mandujano M.D. :1955 A ge:68 Y S ex:Female Date:05/04/2024 Address:[address] [place], [place] [address] Subjective: * Chief Complaints: * 1 . Wound on left leg not healing. * HPI: D ermatology: 68 year old female presents with c/o Wound C at scratch 6 weeks ago. Pt states the wound is not healing well. Pt states she has been on Cephalexin 500 mgtwice a day for 10 days. Pt states she finished that Rx and started on another round of cephalexin 500 mg on Tuesday. * ROS: C ONSTITUTIONAL: no F ever. n o W eight loss. D ERMATOLOGY: no R luis. n o H regine. G ASTROENTEROLOGY: no N ausea. n o V omiting. n o D iarrhea.? U ROLOGY: no D ifficulty urinating. n o B lood in urine. * Medical History: A sthma, Hypertension, Allergy/Sinus, Osteopenia, Esophageal reflux. * Surgical History: T otal Hysterectomy Dr Wilkes 1998, Sinus Dr Troncoso 07/09/2012, Bronchoscopy Dr Rodriguez 11/23/2012. * Hospitalization/Major Diagno stic Procedure: s ee above , Asthma [facility] 2011. * Family History: F ather: . M other: , diagnosed with Hypertension, Stroke. M atedayana Grand Father: , diagnosed with Diabetes, Heart Disease. M aternal Grand Mother: , diagnosed with Hypertension, Stroke. 3 sister(s) - healthy. 3 son(s) , 1 daughter(s) - healthy. . * Social History: C URRENT TOBACCO USE: No . C affeine: yes, frequency:Coffee occasoinally. sodas 1 daily. Marital Status: Single. Alcohol: no. Occupation: not working, Retired. Past smoking status: previous history, 1- 2 ppd for 30 yrs Quit in 1998. Recreational drug use: no. * Medications: T aking Vitamin E 268 MG (400 UNIT) Capsule 1 capsule Orally Once a day , Taking Cetirizine HCl 10 MG Tablet 1 tablet Orally Once a day , Taking Vitamin D3 125 MCG (5000 UT) Capsule 1 capsule Orally Once a day , Taking Quercetin 500 MG Capsule as directed Orally , Taking Slow Magnesium/Calcium 64-106 MG Tablet Delayed Release as directed Orally , Taking Advair Diskus 250-50 MCG/ACT Aerosol Powder Breath Activated 1 puff Inhalation Twice a day , Taking Fluticasone Propionate 50 MCG/ACT Suspension 1 spray in each nostril Nasally once a day , Taking Azelastine HCl 0.1 % Solution 2 puffs (1 spray in each nostril) Nasally once a day , Taking dilTIAZem HCl ER 180 MG Tablet Extended Release 24 Hour 1 tablet Orally Once a day , Taking Montelukast Sodium 10 MG Tablet 1 tablet Orally Once a day , Taking Olmesartan Medoxomil 20 MG Tablet 1 tablet Orally Once a day , Taking Nkgvbctwiu-WPTB-Msrbqleb 50-325-40 MG Capsule 1 capsule as needed Orally every 6 hrs as needed , Taking hydroCHLOROthiazide 12.5 MG Capsule 1 capsule in the morning Orally Once a day , Taking Omeprazole 40 MG Capsule Delayed Release 1 capsule 1/2 to 1 hour before morning meal Orally Once a day , Medication List reviewed and reconciled with the patient * Allergies: P enicillin: rash, Sulfa Antibiotics: stomach upset, Codeine: stomach upset, Morphine: stomach upset, diphenhydrAMINE: hives, Nebivolol: dizziness. Objective: * Vitals: W t:162.6, Temp:97.9, BP:146/70, HR:71, Nurse:JUWAN, Ht:63, BMI:28.80. * Examination: G eneral Examination: General Appearance: N AD. H eart: R SR. L ungs:?clear to auscultation. S kin: a nterior left lower leg with a 1.2 x 1.5 cm wound with minimal surrounding skin erythema. R ecent wound culture reviewed in office today - Staph resistant to PCN. Assessment: * Assessment: 1. O pen wound of left lower extremity, initial encounter - S81.802A (Primary) 2 . E ssential hypertension - I10 3 . A llergic rhinitis, unspecified seasonality, unspecified trigger - J30.9 Plan: * Treatment: 2. E ssential hypertension Continue dilTIAZem HCl ER Tablet Extended Release 24 Hour, 180 MG, 1 tablet, Orally, Once a day;?Continue Olmesartan Medoxomil Tablet, 20 MG, 1 tablet, Orally, Once a day; C ontinue hydroCHLOROthiazide Capsule, 12.5 MG, 1 capsule in the morning, Orally, Once a day. Notes: Not at goal today, Blood pressure journal 3. A llergic rhinitis, unspecified seasonality, unspecified trigger Continue Cetirizine HCl Tablet, 10 MG, 1 tablet, Orally, Once a day; C ontinue Fluticasone Propionate Suspension, 50 MCG/ACT, 1 spray in each nostril, Nasally, once a day; C ontinue Azelastine HCl Solution, 0.1 %, 2 puffs (1 spray in each nostril), Nasally, once a day; C ontinue Montelukast Sodium Tablet, 10 MG, 1 tablet, Orally, Once a day. * Procedure Codes: G 2211 Complex e/m visit add on, 3077F SYST BP = 140 MM HG6 IT, 3078F DIAST BP < 80 MM HG * Follow Up: 3 Weeks fasting * Images: Billing Information: * Visit Code: 29575 Office Visit, New Pt., Level 3. * Procedure Codes: G2211 Complex e/m visit add on. 3077F SYST BP = 140 MM HG6 IT. 3078F DIAST BP < 80 MM HG. * Electronic signature of Kayla Mandujano MD on 01/09/2025 at 11:39 AM EST Sign off status: Pending * Provider: Mary Mandujano M.D. Date: 0 05/04/2024 Generated for Guillermina castillo/Lizzy/Juanyitting on: 1 03/11/2024 11:39 AM EST History and Physical Notes * HPI (History of Present Illness) Category Sub-Category Detail Notes Category Not es Dermatology Wound Cat scratch 6 we eks ago. Pt states the wound is not healing well. Pt states she has been on Cephalexin 500 mgtwice a day for 10 days. Pt states she finished that Rx and started on another round of cephalexin 500 mg on Tuesday Examination Category Sub-Category Detail Notes Category Not es General Examination Heart: RSR Recent w ound culture reviewed in office today - Staph resistant to PCN Lungs: clear to auscultatio n General Appearance: NAD Skin: anterior left lower leg with a 1.2 x 1.5 cm wound with minimal surrounding skin erythema
--- OUTSIDE RECORDS SUMMARY | 2024-05-21 09:30 | XMS_ITS ---
Author Organization [facility] Address [address] [facility] [address] [place] [id number] Care Team Providers Care Bobcat Driver/Labor Name Role Phone Kavin Mandujano Unavailable [phone] Allergies Allergen (clinical drug ingredient) Drug/Non Drug [...] Sulfa Antibiotics stomach upset Drug Allergy Active Results Component Value Reference Range Notes CBC Venipuncture (in house) Reviewed date:05/22/2024 12:35:35 PM Interpretation: Performing Lab: Notes/Report: wbc 8.1 3.5 - 10 lymph 32.8% 15 - 50 mid 6.5% 2 - 15 gran 60.7% 35 - 80 rbc 4.49 3.5 - 5.5 hgb 13.8 11.5 - 16.5 hct 41.3 35 - 55 mcv 91.9 75 - 100 mch 30.8 25 - 35 mchc 33.5 31 - 38 platlet 272 100 - 400 P-Basic Metabolic Panel (BMP ) Reviewed date:05/23/2024 05:43:32 PM Interpretation:Ca 10.6 Performing Lab: Notes/Report: Test performed by [facility], [facility] [address] [place] [address] , [address], [place] [address] Sukh Arellano MD, Ripsaw Matcher CLIA: [id number] Sodium 136 135-145 mmol/L Potassium 4.7 3.5-5.3 mmol/L Chloride 101 97-108 mmol/L CO2 23 22-32 mmol/L Glucose 99 65-99 mg/dL BUN 18 8-23 mg/dL Creatinine 0.89 0.50-1.00 mg/dL Calcium 10.6 8.6-10.4 mg/dL eGFR by Creatinine 69 >59 mL/min/1.73m2 P-Lipid Panel Reviewed date:05/23/2024 05:43:32 PM Interpretation:chol 230, chol/hdl 4.69, non-hdl 181, ldl 154 Performing Lab: Notes/Report: Test performed by [facility], [address] , [place] [address] Sukh Arellano MD, Ripsaw Matcher CLIA: [id number] Cholesterol 230 <200 mg/dL Triglycerides 134 <150 mg/dL HDL Cholesterol 49 >39 mg/dL Cholesterol / HDL Ratio 4.69 0.00-4.44 Ratio Non-HDL Cholesterol 181 <130 mg/dL LDL Cholesterol (Calculation) 154 <130 mg/dL LDL Cholesterol Levels* Less than 100 mg/dL Optimal 100 to 129 mg/dL Near Optimal/ Above Optimal 130 to 159 mg/dL Borderline High 160 to 189 mg/dL High 190 mg/dL and above Very High * Categories as recommended by the 2004 ATPIII guidelines LDL/HDL Ratio 3.1 <3.3 Ratio LDL Cholesterol Patient History Test Date: 05/21/2024 LDL Results: 154 Units: mg/dL % Change: - P-Microalbumin/Creatinine, R andom Urine Sample Reviewed date:05/23/2024 05:43:33 PM Interpretation:Normal Performing Lab: Notes/Report: Test performed by [facility] [address] [place] [address] , [address], [place] [address] Sukh Arellano MD, Ripsaw Matcher CLIA: [id number] Albumin/Creatinine Ratio, Urine 15 0-30 ug/m g Microalbumin, Urine, Random 1.9 Creatinine, Urine 124.8 REASON FOR VISIT left leg spot still infected color has changed Medications Medication SIG (Take, Route, Frequency, Duration) Notes Start Date End Date Status dilTIAZem HCl ER 180 MG 1 tablet Orally Once a day Active Azelastine HCl 0.1 % 2 puffs (1 spray in each nostril) Nasally once a day Active Olmesartan Medoxomil 20 MG 1 tablet Oral ly Once a day Active Montelukast Sodium 10 MG 1 tablet Orally Once a day Active hydroCHLOROthiazide 12.5 MG 1 capsule in the morning Orally Once a day Active Fluticasone Propionate 50 MCG/ACT 1 spray in each nostril Nasally once a day Active Cetirizine HCl 10 MG 1 tablet Orally Onc e a day Active Kikyqzqftx-VSQL-Mfybxgkn 50-325-40 MG 1 capsule as needed Orally every 6 hrs as needed Active Omeprazole 40 MG 1 capsule 1/2 to 1 hour before morning meal Orally Once a day; Duration: 30 day(s) Active Vitamin E 268 MG (400 UNIT) 1 capsule Or ally Once a day; Duration: 30 day(s) Active Advair Diskus 250-50 MCG/ACT 1 puff Inha lation Twice a day Active Quercetin 500 MG as directed Orally Active Vitamin D3 125 MCG (5000 UT) 1 capsule O rally Once a day; Duration: 30 day(s) Active Slow Magnesium/Calcium 64-10 6 MG as directed Orally Active Mupirocin 2 % 1 application Externally Twice a day 05/21/2024 Active Vital Signs Blood pressure systolic 150 mm Hg 05/22/19 25 Blood pressure diastolic 70 mm Hg 025 Heart Rate 95 /min 05/21/2024 Height 63 in 05/21/2024 Weight 161 lbs 05/21/2024 BMI 28.52 kg/m2 05/21/2024 Encounters Encounter Location Date Provider Diagnosis [facility] [address] [facility] [address] [place] [id number] 05/21/2024 Kavinellen Mandujano Open wound of left l ower extremity, subsequent encounter S81.802D and Essential hypertension I10 Assessments Encounter Date Diagnosis (ICD Code) Assessment Notes Treatment Notes Treatment Clinical Notes Section Notes 05/21/2024 Open wound of left lower extremity, subsequent encounter (ICD-10 - S81.802D) 05/21/2024 Essential hypertension (ICD-10 - I10) Plan Of Treatment Medication Medication Name Sig Start Date Stop Date Notes Mupirocin 2 % 1 application Externally Twice a day 025 Next Appt Details Follow Up: via phone to repo rt progress, Reason: Provider Name:Kavni Yarbrough ry, 02/06/2025 09:45:00 AM, [address] [facility] [address] [facility], [address], [place], [id number], Progress Notes * Liz UMANAhyDOB:1955 ( 69 yo F)Acc No.[id number]:05/21/2024 Progress Notes Patient: Abi BROWN Provider: Mary Mandujano M.D. :1955 A ge:68 Y S ex:Female Date:05/21/2024 Address:[address] [place] [address] [id number] Subjective: * Chief Complaints: * 1 . Left leg spot still infected color has changed. * HPI: D ermatology: 68 year old female presents with c/o Wound P t complains of worsening cat scratch on lt calero. Pt states she did finish Doxycycline and wound did look better but she noticed it worsening on . Pt states she noticed skin around wound turning purple and black. Pt states she has had this open wound for about 8 weeks. * ROS: D ERMATOLOGY: no R luis. n o H regine. G ASTROENTEROLOGY: no N ausea. n o V omiting. U ROLOGY: no D ifficulty urinating. n o B lood in urine. * Medical History: A sthma, Hypertension, Allergy/Sinus, Osteopenia, Esophageal reflux. * Surgical History: T otal Hysterectomy Dr Wilkes 1998, Sinus Dr Troncoso 07/09/2012, Bronchoscopy Dr Rodriguez 11/23/2012. * Hospitalization/Major Diagno stic Procedure: A sthma [facility] 2011. * Family History: F ather: . M other: , diagnosed with Hypertension, Stroke. M aternal Grand Father: , diagnosed with Diabetes, Heart [...] capsule Orally Once a day , Taking Vitamin D3 125 MCG (5000 UT) Capsule 1 capsule Orally Once a day , Taking Quercetin 500 MG Capsule as directed Orally , Taking Slow Magnesium/Calcium 64-106 MG Tablet Delayed Release as directed Orally , Taking Advair Diskus 250-50 MCG/ACT Aerosol Powder Breath Activated 1 puff Inhalation Twice a day , Taking Ndsoqckptw-GXLP-Nvrrjlfz 50-325-40 MG Capsule 1 capsule as needed Orally every 6 hrs as needed , Taking Omeprazole 40 MG Capsule Delayed Release 1 capsule 1/2 to 1 hour before morning meal Orally Once a day , Taking Cetirizine HCl 10 MG Tablet 1 tablet Orally Once a day , Taking Fluticasone Propionate 50 [...] tablet Orally Once a day , Taking hydroCHLOROthiazide 12.5 MG Capsule 1 capsule in the morning Orally Once a day , Discontinued Doxycycline Hyclate 100 MG Capsule 1 capsule Orally Twice a day , Medication List reviewed and reconciled with the patient * Allergies: P enicillin: rash, Sulfa Antibiotics: stomach upset, Codeine: stomach upset, Morphine: stomach upset, diphenhydrAMINE: hives, Nebivolol: dizziness. Objective: * Vitals: W t: 161, Temp: 97.9, BP: 150/70, HR: 95, Nurse: olga, Ht: 63, BMI:28.52. * Examination: G eneral Examination: General Appearance: N AD. S kin: w ound on left anterior leg is about the same size as last check, there is less surrounding skin erythema. ? Assessment: * Assessment: 1. O pen wound of left lower extremity, subsequent encounter - S81.802D (Primary) ?2. E ssential hypertension - I10 Plan: * Treatment: Value Reference Range w bc 8.1 3.5 - 10 * l ymph 32.8% 15 - 50 * m id 6.5% 2 - 15 * g ran 60.7% 35 - 80 * r bc 4.49 3.5 - 5.5 * h gb 13.8 11.5 - 16.5 * h ct 41.3 35 - 55 * m cv 91.9 75 - 100 * m ch 30.8 25 - 35 * m chc 33.5 31 - 38 * p latlet 272 100 - 400 * King Shayy 05/21/2024 04:08: 40 PM > 2.?Essential hypertension?LAB: P-Basic Metabolic Panel (BMP) (Collection Date & Time - 05/21/2024 01:59 PM)?Ca 10.6* Value Reference Range B UN 18 8-23 - mg/dL * C alcium 10.6 H 8.6-10.4 - mg/dL * C hloride 101 97-108 - mmol/L * C O2 23 22-32 - mmol/L * C reatinine 0.89 0.50-1.00 - mg/dL * G lucose 99 65-99 - mg/dL * P otassium 4.7 3.5-5.3 - mmol/L * S odium 136 135-145 - mmol/L * e GFR by Creatinine 69 >59 - mL/min/1.73m2 * Divya Marquis 05/23/2024 05:43 :27 PM > See phone encounter ?LAB: P-Lipid Panel (Collection Date & Time - 05/21/2024 01:59 PM)?chol 230, chol/hdl 4.69, non-hdl 181, ldl 154* Value Reference Range C holesterol / HDL Ratio 4.69 H 0.00-4.44 - Ratio * C holesterol 230 H <200 - mg/dL * H DL Cholesterol 49 >39 - mg/dL * L DL Cholesterol (Calculation) 154 H <130 - mg/d L * L DL/HDL Ratio 3.1 <3.3 - Ratio * N on-HDL Cholesterol 181 H <130 - mg/dL * T riglycerides 134 <150 - mg/dL * Divya Marquis 05/23/2024 05:43 :27 PM > See phone encounter ?LAB: P-Microalbumin/Creatinine, Random Urine Sample (Collection Date & Time - 05/21/2024 01:59 PM)?Normal* Value Reference Range A lbumin/Creatinine Ratio, Urine 15 0-30 - ug /mg * C reatinine, Urine 124.8 - mg/dL * M icroalbumin, Urine, Random 1.9 - mg/dL * KandisDivya angela 05/23/2024 05:43 :27 PM > See phone encounter * Procedure Codes: G 2211 Complex e/[place] [address] CBC WITH AUTO DIFF * Follow Up: v ia phone to report progress * Images: Billing Information: * Visit Code: 23090 Office Visit, Est Pt., Level 4. * Procedure Codes: G2211 Complex e/[place]. [address] CBC WITH AUTO DIFF. * Electronic signature of Kayla Mandujano MD on 01/09/2025 at 11:40 AM EST Sign off status: Pending * Provider: Mary Mandujano M.D. Date: 0 05/21/2024 Generated for Guillermina ng/Nikkyg/eTransmitting on: 1 03/11/2024 11:40 AM EST History and Physical Notes * HPI (History of Present Illness) Category Sub-Category Detail Notes Category Not es Dermatology Wound Pt complains of worsening cat scratch on lt calero. Pt states she did finish Doxycycline and wound did look better but she noticed it worsening on . Pt states she noticed skin around wound turning purple and black. Pt states she has had this open wound for about 8 weeks Examination Category Sub-Category Detail Notes Category Not es General Examination General Appearance: NAD Skin: wound on left anteri or leg is about the same size as last check, there is less surrounding skin erythema
--- OUTSIDE RECORDS SUMMARY | 2024-05-25 04:45 | XMS_ITS ---
Author Organization Daniel Address [address] [facility] [address] [facility] [address] [place] [id number] Care Team Providers Care Water Chaser Name Role Phone Kavin Mandujano Unavailable [phone] REASON FOR VISIT 3 week f/u with fasting labs Encounters Encounter Location Date Provider Diagnosis [facility] [address] [facility] [address] [place] [id number] 05/25/2024 Kavin Mandujano Plan Of Treatment Next Appt Details Provider Name:Kavin Yarbrough ry, 02/06/2025 09:45:00 AM, [address] [facility], [address], [place], [id number], Progress Notes * Alia UMANAOB:1955 ( 69 yo F)Acc No.[id number]:05/25/2024 Progress Notes Patient: Abi BROWN Provider: Mary Mandujano M.D. :1955 A ge:68 Y S ex:Female Date:05/25/2024 Address:[address] [place] [address] [address] [id number] Subjective: * Chief Complaints: * 1 . 3 week f/u with fasting labs. * Medical History: Objective: * Vitals: Assessment: Plan: * Treatment: * Images: Billing Information: * Visit Code: * Procedure Codes: * Electronic signature of Kayla Mandujano MD on 01/09/2025 at 11:40 AM EST Sign off status: Pending * Provider: Mary Mandujano M.D. Date: 0 05/25/2024 Generated for Alirioi jonathan/Lizzy/eTransmitting on: 1 03/11/2024 11:40 AM EST
--- OUTSIDE RECORDS SUMMARY | 2024-08-06 04:30 | XMS_ITS ---
Author Organization [facility] Address [address] [place] [id number] Care Team Providers Care Mental Health Nurse Name Role Phone Kavin Mandujano Unavailable [phone] Allergies Allergen (clinical drug ingredient) Drug/Non Drug Allergy documented on EMR Reaction Allergy Type Onset Date Status rosuvastatin Crestor Unknown Drug Allergy Acti ve atorvastatin Lipitor Unknown Drug Allergy Acti ve codeine Codeine stomach upset Drug Allergy Act donnie diphenhydramine diphenhydrAMINE hives Drug Allergy Active morphine Morphine stomach upset Drug Allergy Act donnie nebivolol Nebivolol dizziness Drug Allergy Active Penicillin rash Drug Allergy Active Substance with sulfonamide structure and antibacterial mechanism of action (substance) Sulfa Antibiotics stomach upset Drug Allergy Active Results Component Value Reference Range Notes P-Calcium, Ionized Reviewed date:08/08/2024 08:46:10 AM Interpretation:5.39 Performing Lab: Notes/Report: Test performed by [facility] [address] [place], [place] [address] [address], [place] [address] Sukh Arellano MD, Weigher And Mixer CLIA: [id number] Calcium, Ionized 5.39 4.60-5.30 mg/dL P-Comprehensive Metabolic Pa charlene (CMP) Reviewed date:08/08/2024 08:46:10 AM Interpretation:Normal Performing Lab: Notes/Report: Test performed by [facility] [address] [place], [place] [address] [address], [place] [address] Sukh Arellano MD, Weigher And Mixer CLIA: [id number] Sodium 136 135-145 mmol/L Potassium 4.4 3.5-5.3 mmol/L Chloride 100 97-108 mmol/L CO2 24 22-32 mmol/L Glucose 93 65-99 mg/dL BUN 18 8-23 mg/dL Creatinine 0.95 0.50-1.00 mg/dL Calcium 10.1 8.6-10.4 mg/dL eGFR by Creatinine 64 >59 mL/min/1.73m2 Protein 6.5 6.0-8.3 g/dL Albumin 4.4 3.5-5.3 g/dL Alkaline Phosphatase 65 35-121 IU/L ALT (SGPT) 11 <5-47 IU/L AST (SGOT) 15 <5-40 IU/L Bilirubin, Total 0.4 <0.2-1.2 mg/dL A/G Ratio 2.1 1.1-2.5 P-Lipid Panel Reviewed date:08/08/2024 08:46:11 AM Interpretation:chol 223, trigs 155, chol/hdl 5.19, non-hdl 180, ldl 149, ldl/hdl 3.5 Performing Lab: Notes/Report: Test performed by [facility], [address] , [facility], [place] [address] Sukh Arellano MD, Weigher And Mixer CLIA: [id number] Cholesterol 223 <200 mg/dL Triglycerides 155 <150 mg/dL HDL Cholesterol 43 >39 mg/dL Cholesterol / HDL Ratio 5.19 0.00-4.44 Ratio Non-HDL Cholesterol 180 <130 mg/dL LDL Cholesterol (Calculation) 149 <130 mg/dL LDL Cholesterol Levels* Less than 100 mg/dL Optimal 100 to 129 mg/dL Near Optimal/ Above Optimal 130 to 159 mg/dL Borderline High 160 to 189 mg/dL High 190 mg/dL and above Very High * Categories as recommended by the 2004 ATPIII guidelines LDL/HDL Ratio 3.5 <3.3 Ratio LDL Cholesterol Patient History Test Date: 05/21/2024 LDL Results: 154 Units: mg/dL % Change: - Test Date: 08/06/2024 LDL Results: 149 Units: mg/dL % Change: -3% P-TSH reflex to FT4 Reviewed date:08/08/2024 08:46:11 AM Interpretation:Normal Performing Lab: Notes/Report: Test performed by [facility] , [address], [place] [address] Sukh Arellano MD, Weigher And Mixer CLIA: [id number] TSH reflex to FT4 2.60 0.43-5.25 mU/L REASON FOR VISIT 3 Month Check Up w/ Fasting Labs Medications Medication SIG (Take, Route, Frequency, Duration) Notes Start Date End Date Status Lwwobqoldt-EVGE-Lahjyqyg 50-325-40 MG 1 capsule as needed Orally every 6 hrs as needed Active Advair Diskus 250-50 MCG/ACT 1 puff Inha lation Twice a day Active Slow Magnesium/Calcium 64-10 6 MG as directed Orally Active Quercetin 500 MG as directed Orally Active Vitamin D3 125 MCG (5000 UT) 1 capsule O rally Once a day; Duration: 30 day(s) Active Olmesartan Medoxomil 20 MG 1 tablet Oral ly Once a day Active dilTIAZem HCl ER 180 MG 1 tablet Orally Once a day Active hydroCHLOROthiazide 12.5 MG 1 capsule in the morning Orally Once a day Active Vitamin E 268 MG (400 UNIT) 1 capsule Or ally Once a day; Duration: 30 day(s) Active Mupirocin 2 % 1 application Externally Twice a day 05/21/2024 Active Cetirizine HCl 10 MG 1 tablet Orally Onc e a day Active Omeprazole 40 MG 1 capsule 1/2 to 1 hour before morning meal Orally Once a day; Duration: 30 day(s) Active Montelukast Sodium 10 MG 1 tablet Orally Once a day Active Azelastine HCl 0.1 % 2 puffs (1 spray in each nostril) Nasally once a day Active Fluticasone Propionate 50 MCG/ACT 1 spray in each nostril Nasally once a day Active Problems Problem Type SNOMED Code ICD Code Onset Dates Problem Status W/U Status Risk Notes Problem Mixed hyperlipidemia (732481717) Mixed hyperlipidemia (E78.2) Active confirmed Problem Hypercalcemia (37740190) Hypercalcemia (E83.52) Active confirmed Vital Signs Blood pressure systolic 150 mm Hg 08/07/19 25 Blood pressure diastolic 74 mm Hg 025 Heart Rate 88 /min 08/06/2024 Height 63 in 08/06/2024 Weight 165.2 lbs 08/06/2024 BMI 29.26 kg/m2 08/06/2024 Encounters Encounter Location Date Provider Diagnosis [facility] [address] [facility] [address] [place] [address], [place] [id number] 08/06/2024 Kavin Mandujano Essential hypertensi on I10 ; Mixed hyperlipidemia E78.2 ; Hypercalcemia E83.52 and BMI 29.0-29.9,adult Z68.29 Assessments Encounter Date Diagnosis (ICD Code) Assessment Notes Treatment Notes Treatment Clinical Notes Section Notes 08/06/2024 Essential hypertension (ICD-10 - I10) Not at goal today. Patient wants to keep a BP journal for a few weeks better decision is madew about increasing dose of Benicar 08/06/2024 Mixed hyperlipidemia (ICD-10 - E78.2) 08/06/2024 Hypercalcemia (ICD-10 - E83.52) 08/06/2024 BMI 29.0-29.9,adult (ICD-10 - Z68.29) Plan Of Treatment Medication Medication Name Sig Start Date Stop Date Notes Olmesartan Medoxomil 20 MG 1 tablet Orally Once a day dilTIAZem HCl ER 180 MG 1 tablet Orally Once a day hydroCHLOROthiazide 12.5 MG 1 capsule in the morning Orally Once a day Treatment Notes Assessment Notes Essential hypertension Not at goal today . Patient wants to keep a BP journal for a few weeks better decision is madew about increasing dose of Benicar Next Appt Details Follow Up: 6 Months, Reason: Provider Name:Kavin Yarbrough ry, 02/06/2025 09:45:00 AM, [address], [address], [place], [id number], Progress Notes * Alia UMANAOB:1955 ( 69 yo F)Acc No.[id number]:08/06/2024 Progress Notes Patient: Abi BROWN Provider: Mary Mandujano M.D. :1955 A ge:68 Y S ex:Female Date:08/06/2024 Address:[address] [place] [address] [id number] Subjective: * Chief Complaints: * 1 . 3 Month Check Up w/ Fasting Labs. * HPI: C ardiology: 68 year old female presents with c/o Blood Pressure Elevated?Pt here to f/u on hypertension. Pt states she is doing well and does not have any concerns today. Pt is fasting. * ROS: D ERMATOLOGY: no R luis. [...] * Hospitalization/Major Diagno stic Procedure: A sthma [facility] 2011. * Family History: F ather: . [...] puff Inhalation Twice a day , Taking Lgqffedcgq-CJRG-Udcjharm 50-325-40 MG Capsule 1 capsule as needed [...] morning Orally Once a day , Taking Mupirocin 2 % Ointment 1 application Externally Twice a day , Medication List reviewed and reconciled with the patient * Allergies: P enicillin: rash, Sulfa Antibiotics: stomach upset, Codeine: stomach upset, Morphine: stomach upset, diphenhydrAMINE: hives, Nebivolol: dizziness, Lipitor: Side Effects, Crestor: Side Effects. Objective: * Vitals: W t: 165.2, Temp: 98.0, BP: 150/74, HR: 88, Nurse: olga, Ht: 63, BMI:29.26. * Examination: G eneral Examination: General Appearance: N AD. H eart: R SR. L ungs:?clear to auscultation. Assessment: * Assessment: 1. E ssential hypertension - I10 (Primary) 2 . M ixed hyperlipidemia - E78.2 3 . H ypercalcemia - E83.52 4 . B CO 29.0-29.9,adult - Z68.29 Plan: * Treatment: Value Reference Range A /G Ratio 2.1 1.1-2.5 - * A lbumin 4.4 3.5-5.3 - g/dL * A lkaline Phosphatase 65 35-121 - IU/L * A LT (SGPT) 11 <5-47 - IU/L * A ST (SGOT) 15 <5-40 - IU/L * B ilirubin, Total 0.4 <0.2-1.2 - mg/dL * B UN 18 8-23 - mg/dL * C alcium 10.1 8.6-10.4 - mg/dL * C hloride 100 97-108 - mmol/L * C O2 24 22-32 - mmol/L * C reatinine 0.95 0.50-1.00 - mg/dL * G lucose 93 65-99 - mg/dL * P otassium 4.4 3.5-5.3 - mmol/L * S odium 136 135-145 - mmol/L * P rotein 6.5 6.0-8.3 - g/dL * e GFR by Creatinine 64 >59 - mL/min/1.73m2 * Divya Marquis 08/08/2024 08:4 6:01 AM EDT > See phone encounter Notes: Not at goal today. Patient wants to keep a BP journal for a few weeks better decision is madew about increasing dose of Benicar??2.?Mixed hyperlipidemia?LAB: P-Comprehensive Metabolic Panel (CMP) (Collection Date & Time - 08/06/2024 08:48 AM)?Normal* Value Reference Range A /G Ratio 2.1 1.1-2.5 - * A lbumin 4.4 3.5-5.3 - g/dL * A lkaline Phosphatase 65 35-121 - IU/L * A LT (SGPT) 11 <5-47 - IU/L * A ST (SGOT) 15 <5-40 - IU/L * B ilirubin, Total 0.4 <0.2-1.2 - mg/dL * B UN 18 8-23 - mg/dL * C alcium 10.1 8.6-10.4 - mg/dL * C hloride 100 97-108 - mmol/L * C O2 24 22-32 - mmol/L * C reatinine 0.95 0.50-1.00 - mg/dL * G lucose 93 65-99 - mg/dL * P otassium 4.4 3.5-5.3 - mmol/L * S odium 136 135-145 - mmol/L * P rotein 6.5 6.0-8.3 - g/dL * e GFR by Creatinine 64 >59 - mL/min/1.73m2 * Divay Marquis 08/08/2024 08:4 6:01 AM EDT > See phone encounter ?LAB: P-Lipid Panel (Collection Date & Time - 08/06/2024 08:48 AM)?chol 223, trigs 155, chol/hdl 5.19, non-hdl 180, ldl 149, ldl/hdl 3.5* Value Reference Range C holesterol / HDL Ratio 5.19 H 0.00-4.44 - Ratio * C holesterol 223 H <200 - mg/dL * H DL Cholesterol 43 >39 - mg/dL * L DL Cholesterol (Calculation) 149 H <130 - mg/d L * L DL/HDL Ratio 3.5 H <3.3 - Ratio * N on-HDL Cholesterol 180 H <130 - mg/dL * T riglycerides 155 H <150 - mg/dL * Divya Marquis 08/08/2024 08:4 6:01 AM EDT > See phone encounter ?LAB: P-TSH reflex to FT4 (Collection Date & Time - 08/06/2024 08:48 AM)? Normal* Value Reference Range T SH reflex to FT4 2.60 0.43-5.25 - mU/L * Divya Marquis 08/08/2024 08:4 6:01 AM EDT > See phone encounter 3.?Hypercalcemia?LAB: P-Calcium, Ionized (Collection Date & Time - 08/06/2024 08:48 AM)?5.39 * Value Reference Range C alcium, Ionized 5.39 H 4.60-5.30 - mg/dL * Divya Marquis 08/08/2024 08:4 6:01 AM EDT > See phone encounter ?LAB: P-Comprehensive Metabolic Panel (CMP) (Collection Date & Time - 08/06/2024 08:48 AM)?Normal* Value Reference Range A /G Ratio 2.1 1.1-2.5 - * A lbumin 4.4 3.5-5.3 - g/dL * A lkaline Phosphatase 65 35-121 - IU/L * A LT (SGPT) 11 <5-47 - IU/L * A ST (SGOT) 15 <5-40 - IU/L * B ilirubin, Total 0.4 <0.2-1.2 - mg/dL * B UN 18 8-23 - mg/dL * C alcium 10.1 8.6-10.4 - mg/dL * C hloride 100 97-108 - mmol/L * C O2 24 22-32 - mmol/L * C reatinine 0.95 0.50-1.00 - mg/dL * G lucose 93 65-99 - mg/dL * P otassium 4.4 3.5-5.3 - mmol/L * S odium 136 135-145 - mmol/L * P rotein 6.5 6.0-8.3 - g/dL * e GFR by Creatinine 64 >59 - mL/min/1.73m2 * Divya Marquis 08/08/2024 08:4 6:01 AM EDT > See phone encounter * Procedure Codes: G 2211 Complex e/m visit add on, 1036F TOBACCO NON-USER, G8950 PREHTN/HTN BP DOC INDCD F/U DOC, G8753 MOST RECENT SYSTOLIC BP >= 140MM HG, G8754 MOST RECENT DIASTOLIC BP < 90MM HG, G8420 BMI<30 AND >=22 CALC & DOCU * Follow Up: 6 Months * Images: Billing Information: * Visit Code: 33778 Office Visit, Est Pt., Level 4. * Procedure Codes: G2211 Complex e/m visit add on. 1036F TOBACCO NON-USER. G8950 PREHTN/HTN BP DOC INDCD F/U DOC. G8753 MOST RECENT SYSTOLIC BP >= 140MM HG. G8754 MOST RECENT DIASTOLIC BP < 90MM HG. G8420 BMI<30 AND >=22 CALC & DOCU. * Electronic signature of Kayla Mandujano MD on 01/09/2025 at 11:39 AM EST Sign off status: Pending * Provider: Mary Mandujano M.D. Date: 0 08/06/2024 Generated for Guillermina castillo/Lizzy/Holgersmitting on: 1 03/11/2024 11:39 AM EST History and Physical Notes * HPI (History of Present Illness) Category Sub-Category Detail Notes Category Not es Cardiology Blood Pressure Elevated Pt here to f/u on hypertension. Pt states she is doing well and does not have any concerns today. Pt is fasting Examination Category Sub-Category Detail Notes Category Not es General Examination Heart: RSR Lungs: clear to auscultatio n General Appearance: NAD
[2025-01-09 10:32] VITALS: BP 173/76; PULSE 71; RESP 18; TEMP 36.8; O2SAT 98
[2025-01-09] MEDS: DENOSUMAB 60 MG/ML SYRINGE SUBCUT (10:32)
--- OUTSIDE RECORDS SUMMARY | 2025-01-09 11:38 | XMS_ITS ---
Author Organization Unknown ENCOUNTERS Encounter Performer Location Date Diagnosis Diagnosis Status Emergency [facility] [address] [place] [address] [id number] FELICE Pre Admit [facility] [address] [place] [address] [id number] Pre [facility]mit [facility] [address] [place] [address] [id number] Emergency [facility] [address] [facility] [address] [facility] [address] [id number] FELICE Emergency [facility] [address] [facility] [address] [place] [address] [id number] FELICE Pre Admit [facility] [address] [place] [address] [id number] Emergency [facility] [address] [facility] [address] [place] [address] [id number] FELICE *Note: Encounters from your own facility or health system may be excluded. Allergies, Adverse Reactions, Alerts Allergen Type Severity Identification Date morphine drug allergy 0 [id number] Sulfa (Sulfonamide Antibiotics) drug allergy 0 [id number] codeine drug allergy 0 53819117 Penicillins drug allergy 0 10909145 nebivolol drug allergy 0 24722340 diphenhydramine drug allergy 0 95647369 Medications Name Date Quantity Days Supplied GPI Number
--- OUTSIDE RECORDS SUMMARY | 2025-01-09 11:38 | XMS_ITS | Patient Health Record ---
[facility] Organization [facility] Address [address] [facility] [address] [place] [id number] Care Team Providers Care Sales Associate Name Role Phone Kavin Mandujano Unavailable [phone] Allergies Allergen (clinical drug ingredient) Drug/Non Drug [...] date:08/08/2024 08:46:10 AM Interpretation:5.39 Performing Lab: Notes/Report: CLIA: [id number] Sukh Arellano MD, Bilingual Operator [address] [place] [address] , [address], [place] [address] Test performed by [facility] Calcium, Ionized 5.39 4.60-5.30 mg/dL P-Comprehensive Metabolic Pa charlene (CMP) Reviewed date:08/08/2024 08:46:10 AM Interpretation:Normal Performing Lab: Notes/Report: Test performed by [facility] [address] [place] [address] Bozena Lanier, [address], [place] [address] Sukh Arellano MD, Bilingual Operator CLIA: [id number] Sodium 136 135-145 mmol/L Potassium 4.4 3.5-5.3 [...] 3.5 Performing Lab: Notes/Report: Test performed by [facility], [address] , [address] , [place] [address] Sukh Arellano MD, Bilingual Operator CLIA: [id number] Cholesterol 223 <200 mg/dL Triglycerides 155 <150 [...] Interpretation:Normal Performing Lab: Notes/Report: Test performed by [facility] [address] [place], [place] [address] , [place] [address] Sukh Arellano MD, Bilingual Operator CLIA: [id number] TSH reflex to FT4 2.60 0.43-5.25 mU/L CBC Venipuncture (in house) Reviewed date:05/22/2024 12:35:35 [...] 10.6 Performing Lab: Notes/Report: Test performed by [facility] [address] [place], [place] [address] , [address], [place] [address] Sukh Arellano MD, Bilingual Operator CLIA: [id number] Sodium 136 135-145 mmol/L Potassium 4.7 3.5-5.3 mmol/L Chloride 101 97-108 mmol/L CO2 23 22-32 mmol/L Glucose 99 65-99 mg/dL BUN 18 8-23 mg/dL Creatinine 0.89 0.50-1.00 mg/dL Calcium 10.6 8.6-10.4 mg/dL eGFR by Creatinine 69 >59 mL/min/1.73m2 P-Lipid Panel Reviewed date:05/23/2024 05:43:32 PM Interpretation:chol 230, chol/hdl 4.69, non-hdl 181, ldl 154 Performing Lab: Notes/Report: Test performed by [facility], [address] , [place] [address] Sukh Arellano MD, Bilingual Operator CLIA: [id number] Cholesterol 230 <200 mg/dL Triglycerides 134 <150 [...] Interpretation:Normal Performing Lab: Notes/Report: Test performed by [facility], [address] , [address] , [place] [address] Sukh Arellano MD, Bilingual Operator CLIA: [id number] Albumin/Creatinine Ratio, Urine 15 0-30 ug/m g Microalbumin, Urine, Random 1.9 Creatinine, Urine 124.8 Mammogram Reviewed date:08/31/2024 11:10:48 AM Interpretation:Negative, F/U Annually Performing Lab: Notes/Report: Negative, F/U Annually Reason For Referral No Information Medications Medication SIG (Take, Route, Frequency, Duration) Notes Start Date End Date Status Jvdzsgjtjp-FEGK-Irqengvh 50-325-40 MG 1 capsule as needed Orally [...] Status W/U Status Risk Notes Problem Hypercalcemia (83559028) Hypercalcemia (E83.52) Active confirmed Problem Essential hypertension (01692796) Essential hypertension (I10) Active confirmed Problem Mixed hyperlipidemia (964051469) Mixed hyperlipidemia (E78.2) Active confirmed Problem Allergic rhinitis (03442956) Allergic rhinitis, unspecified seasonality, unspecified trigger (J30.9) Active confirmed Vital Signs Heart Rate 88 /min 08/06/2024 Blood pressure diastolic 74 mm Hg 08/06/2024 Height 63 in 08/06/2024 Blood pressure systolic 150 mm Hg 08/06/2024 Weight 165.2 lbs 08/06/2024 BMI 29.26 kg/m2 08/06/2024 Encounters Encounter Location Date Provider Diagnosis [facility] [address] [place], [place] [id number] 05/04/2024 Kavin [place] Open wound of left l ower extremity, initial encounter S81.802A ; Essential hypertension I10 and Allergic rhinitis, unspecified seasonality, unspecified trigger J30.9 [facility] [address] [place], [place] [id number] 05/21/2024 Kavin [place] Open wound of left l ower extremity, subsequent encounter S81.802D and Essential hypertension I10 [facility] [address] [place], [place] [id number] 08/06/2024 Kavin [place] Essential hypertensi on I10 ; Mixed hyperlipidemia E78.2 ; Hypercalcemia E83.52 and BMI 29.0-29.9,adult Z68.29 [facility] [address] [facility] [address] [place], [place] [id number] 05/23/2024 Kavin [place] [facility] [address] [facility] [address] [place] [id number] 08/08/2024 Kavin [place] [facility] [address] [place] [id number] 08/15/2024 Kavin Mandujano Screening for breast cancer [...] 29.0-29.9,adult (ICD-10 - Z68.29) Plan Of Treatment Next Appt Details Provider Name:Kavin Yarbrough , 02/06/2025 09:45:00 AM, [address] [facility] [address] [facility], [address], [place], [id number], Insurance Providers Payer Name Payer Address Payer Phone Subscriber Number Group Number Insured Name Patient Relationship to Insured Coverage Start Date Coverage End Date MEDICARE PART B [address] [address] [place] [address] [id number] Abi Gomes Self - patient is the insured [email or web address] INSURANCE [address] [place] [id number] Abi Gomes Self - patient is the insured Medical (General) History Medical History History ICD Code Asthma Hypertension Allergy/Sinus osteopenia Esophageal reflux Surgical History Surgery Date(Month/Year) Total Hysterectomy Dr Wilkes [address] Troncoso 07/09/[address] Rodriguez 11/23/2012 Hospitalization History Reason Date(Month/Year) Asthma [facility] 2011
--- OUTSIDE RECORDS SUMMARY | 2025-01-09 11:39 | XMS_ITS | Clinical Summary ---
Author Organization [facility] Address [address] [place] [address] Care Team Providers Care Switch Engineer Name Role Phone Bird Stanton MD Primary Care Provider [phone] Immunizations Immunization Administration Dates Next Due Influenza, [...] of Treatment Not on file Care Teams Switch Engineer Relationship Specialty Start Date End Date Bird Stanton MD [address] [facility] [facility] [address] [place] [address] [facility] - General 07/04/20
== END 2025-01-09 23:59 | disposition home or self-care (01) ==
LOC: INF 10:27
PROVIDERS: PCP Family Medicine; Visit Provider Nurse Practitioner Obstetrics & Gynecology
DX: M85.80 Other specified disorders of bone density and structure, unspecified site (principal)
CPT/HCPCS: 96372; J0897

== ENCOUNTER 2025-02-07 09:24 | Outpatient (CLI) | payer SELFPAY ==
--- NOTE | 2025-02-07 09:30 | CT_ITS ---
APPROVED REPORT Phosphatic Fertilizer Supervisor: CLINICAL INDICATION Coronary risk evaluation and stratification TECHNIQUE Image Acquisition: A 128 slice MDCT scanner (IntelliBatta View) was used for data acquisition. A noncontrast coronary calcium scan was performed. A CT attenuation threshold of 130 Hounsfield units (HU) was used for the detection of calcium in contiguous voxels of 1 sq mm in area to be counted as individual lesions. A tube voltage of 120 KVp was used. The patient received no medications prior to the coronary calcium CT. Image Reconstruction Transaxial images were reconstructed at 0.67 mm slide thickness. Data was reviewed interactively on an advanced workstation capable of 2 and 3-dimensional displays in all conventional reconstruction formats, including multiplanar reformations, maximum intensity projections, curved multiplanar reformations, and volume rendered reconstructions. When applicable, selected routine images describing the relevant coronary anatomy and pathology were saved and sent to PACS. Complications None Technical Quality Overall image quality was good. Total DLP (Dose-Length Product) is 169 mGy-cm. The reported value represents the total of one or more individual components during the CT acquisition of this date and at this time, and as such, the same value may appear in more than one CT report depending on the interpreting/reporting physicians. COMPARISON None FINDINGS CT Coronary Calcium Scoring LMA (Left Main Artery) = 5 LAD (Left Anterior Descending) = 0 LCX (Left Coronary Circumflex) = 0 RCA (Right Coronary Artery) = 0 Total Calcium Score = 5 using the AJ-130 method. There is also mild calcification in the aortic valve. IMPRESSION -Coronary artery calcification is present. -Total Calcium Score (Agatston Score) = 5 using the AJ-130 method. -The observed calcium score of 5 is at 41st percentile for subjects of the same age, sex, and race/ethnicity. -Mild calcification of the aortic valve. -Hiatal hernia is incidentally noted. The interpretation of the calcium heart score is based on the following continuum*: 0 = no calcified plaque detected (risk of coronary artery disease is very low ??? less than 5%) 1-10 = calcium detected in extremely minimal levels (risk of coronary diseases is still low ??? less than 10%) 11-100 = mild levels of plaque detected with certainty (mild or minimal narrowing of heart arteries is likely) 101-400 = definite,at least moderate levels of plaque detected (relatively high risk of a heart attack within 3-5 years) >401-999 = extensive levels of plaque detected (high risk of heart attack, high levels of vascular disease are present, high likelihood of at least one significant coronary narrowing) *The calcium heart score quantifies the burden of coronary calcification/plaque in the coronary arteries. The calcium heart score does not evaluate the presence or the burden of non-calcified (i.e. soft) plaque. The coronary and cardiac findings of this Coronary Calcium CT were reviewed, reported, and signed by Abundio Don MD (Lockstitch Zipper Setter). Conclusion Electronically signed by : Mercy Don MD 02/15/2025 07:43:04
--- OUTSIDE RECORDS SUMMARY | 2025-02-07 09:36 | XMS_ITS | Clinical Summary ---
Author Organization [facility] Address [address] [place] [address] Care Team Providers Care Cardiothoracic Surgeon Name Role Phone Bird Stanton MD Primary Care Provider [phone] Immunizations Immunization Administration Dates Next Due Influenza, [...] of Treatment Not on file Care Teams Cardiothoracic Surgeon Relationship Specialty Start Date End Date Bird Stanton MD [address] [facility] [place] [address] [facility] - General 07/04/20
== END 2025-02-07 23:59 | disposition home or self-care (01) ==
PROVIDERS: PCP Family Medicine; Visit Provider Family Medicine
DX: Z13.6 Encounter for screening for cardiovascular disorders (principal); I25.10 Atherosclerotic heart disease of native coronary artery without angina pectoris; K44.9 Diaphragmatic hernia without obstruction or gangrene
CPT/HCPCS: 75571